=== PATIENT | male | born 1940 | race Caucasian/White ===

== ENCOUNTER 2017-02-05 08:30 | Inpatient (IN) | payer MEDICARE, BC ==
[~2017-02-05] VITALS: Ht 172.7 cm; Wt 91.6 kg
[~2017-02-05 08:30] MED LIST: ATOR40TA16 PO; CALC0.25 PO; DIOV320T PO; FURO40TA PO; GLIP5TAB8 PO; HYDR-3801 PO; LABE300T PO; OXYC-395 PO; TRAD5TAB PO
[2017-03-13] MEDS ORDERED: ASPI1TAB69 PO (13:27)
[2017-03-13] MEDS ORDERED: OMEG100010 PO (13:27)
[2017-03-13] MEDS ORDERED: ULOR80TA2 PO (13:27)
[2017-03-13] MEDS ORDERED: AMLO10TA2 PO (13:28)
--- NOTE | 2017-03-16 15:29 | MH ---
cc: KEYLA MOORE M.D., ROHIT K. M.D. DATE OF ADMISSION: 03/18/2017 ADMISSION DIAGNOSIS Lumbar degenerative disc disease. HISTORY OF PRESENT ILLNESS This is a 76-year-old male who is known to us. He has previously undergone a redo left L2-L3 hemilaminotomy with microdiscectomy on 11/01/14 and prior to that he had undergone an left L2-L3 and L3-L4 hemilaminotomy with microdiscectomy on 05/14/13. The patient states since his last surgery he did really well but then progressively started having difficulty walking. He has left-sided back pain that radiates into the hip area on the left side. He denies any paresthesias in the lower extremities. He has bilateral leg pain but is unclear of the exact distribution. He denies any bowel or bladder incontinence. He states his pain resolves with lying down. He has tried physical therapy, acupuncture, pain management and he continues to decline in his level of pain and his function. The patient and his are stating that he cannot live with his current level of discomfort and the restrictions, and he is requesting that we proceed with surgical intervention. PAST MEDICAL HISTORY Significant for - 1. Diabetes mellitus. 2. Sleep apnea and uses a CPAP machine. 3. Hypertension. 4. Chronic kidney disease and failure. 5. Rheumatoid arthritis. 6. Redo left L2-L3 hemilaminotomy with microdiscectomy on 11/01/14. Left L2-L3 and L3-L4 hemilaminotomy with microdiscectomy on 05/14/13. All surgeries were performed by Dr. Bowen. ALLERGIES TO MEDICATIONS HE HAS NO KNOWN DRUG ALLERGIES. CURRENT MEDICATIONS 1. Uloric 80 mg daily. 2. Glipizide 5 mg b.i.d. 3. Mcdaniel-3 acid 1 gram t.i.d. 4. Amlodipine 10 mg daily. 5. Tradjenta 5 mg daily. 6. Diovan 320 mg daily. 7. Calcitriol 0.25 mg daily. 8. Atorvastatin 40 mg daily. 9. Hydralazine 100 mg t.i.d. 10. Aspirin 81 mg daily. This was placed on hold one week prior to surgical intervention. 11. Labetalol 300 mg t.i.d. 12. Oxycodone 10/325 p.r.n. pain. FAMILY HISTORY His mother is at 74 years old had cancer. His father is at 75 years old. He has a sister who is at 86 years old. He has another sister who is alive at 85 and two brothers that are alive one 75 the other 79. 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 He is . He quit smoking 40 years ago. He drinks alcohol 0-2 drinks a day. REVIEW OF SYSTEMS CONSTITUTIONAL: He denies any fever or chills. EARS, NOSE AND THROAT: No pharyngitis, exudates or bloody drainage from his nose. CARDIOVASCULAR: Denies any chest pain or palpitations. RESPIRATORY: No cough or shortness of breath. GENITOURINARY: No dysuria or hematuria. MUSCULOSKELETAL: Positive for low back pain and leg pain. SKIN: No rashes or pruritus. NEUROLOGIC: No difficulty with speech or memory. GASTROINTESTINAL: No nausea, vomiting or abdominal pain. PSYCHIATRIC: No anxiety or depression symptoms. ENDOCRINE: No polyuria or polydipsia. HEMATOLOGIC: No bruising or bleeding tendencies. PHYSICAL EXAMINATION HEAD: Normocephalic, atraumatic. NECK: Supple. No carotid bruits heard on auscultation. LUNGS: Clear to auscultation bilaterally. HEART: Regular, rate and rhythm. Normal S1, S2. ABDOMEN: Soft, nontender. Positive bowel sounds. SKIN: Reveals no cyanosis or erythema. MUSCULOSKELETAL: He has 5/5 strength in the lower extremities. He ambulates without any assistive device and he ambulates with a limp. NEUROLOGIC: He is awake, alert and oriented. Cranial nerves II through XII are grossly intact. His speech is fluent. Comprehension is good. Sensation is intact in the extremities. Reflexes are diminished in the lower extremities. DATA REVIEW We reviewed an MRI of the lumbar spine from January 07, 2017 which reveals multilevel advanced disc degeneration with disc height collapse along with facet hypertrophy as well as degenerative scoliosis. He has had previous left L2-L3 and L3-L4 hemilaminotomy defects. He has a recurrent disc herniation with left L2-L3 level with an inferior migrated fragment which leads to lateral recess and significant foraminal stenosis at the L2-L3 and L3-L4 levels. There is facet hypertrophy and stenosis at the L4 and L5 level more prominent on the right lateral recess and foramen. IMPRESSION A 76-year-old male with a chronic and progressively worsening low back pain along with left L2 and L3 radiculopathy. He has had a previous history of L2-L3 and L3-L4 left hemilaminotomy with microdiscectomy with recurrent L2-L3 microdiscectomy and did well subsequent to that, but now has recurrent symptoms which have failed conservative treatment measures for including physical therapy and interventional pain management. He is very restricted in his activity status due to the pain. He has severe L2-L3 and L3-L4 facet arthropathy along with degenerative disc disease and recurrent disc herniation with lateral recess and foraminal stenosis. There are other levels of degenerative disc disease and facet arthropathy in particular involving the L4-L5 level, but the L2-L3 and L3-L4 levels appear to be the ones symptomatic at the time. PLAN We have discussed the treatment options and the patient is requesting that we proceed with surgical intervention stating he is miserable with his level of discomfort. We have discussed a left L2-L3 and L3-L4 transforaminal decompression with complete discectomy and interbody fusion with pedicle screw fixation. We have discussed the procedure as well as the risks, benefits, alternatives and recovery time in great detail with the patient. We have obtained clearance from Dr. Moore for his significant kidney disease. The patient states that he understands the procedure as well as the risks involved and he wishes to proceed with surgical intervention. No guarantees were given to the patient to the results of the surgical procedure and he states that he understands this and he was therefore scheduled accordingly. Dictated by: Bon Christianson PA-C MD KRYSTINA Crawley/JANIE /2:24 PM /2:39 PM
[2017-03-18 06:53] VITALS: BP 126/64; PULSE 55; RESP 16; TEMP 98.4; O2SAT 95
[2017-03-18] MEDS ORDERED: ceFAZolin 2 GM PREMIX 50 ML ONE (06:53)
[2017-03-18] MEDS ORDERED: BUPIVACAINE/EPINEPHRINE 0.5% 50 ML VIAL ONE (06:59)
[2017-03-18] MEDS ORDERED: VANCOMYCIN HCL 1000 MG VIAL ONE ×2 (06:59→07:05)
[2017-03-18] MEDS ORDERED: VANCOMYCIN 500 MG VIAL ONE (06:59)
[2017-03-18] MEDS ORDERED: THROMBIN (TOPICAL) 5,000 UNIT VIAL ONE ×2 (06:59→12:11)
[2017-03-18] MEDS ORDERED: GELFOAM SIZE 100 ONE (06:59)
[2017-03-18] MEDS ORDERED: ARTIFICIAL TEARS OPTH OINT 3.5 APPLIC/3.5 GM TUBO ONE (08:13)
[2017-03-18] MEDS ORDERED: ACETAMINOPHEN 1000 MG/100 ML VIAL IV ONE (08:13)
[2017-03-18] MEDS ORDERED: FAMOTIDINE 20 MG/2 ML VIAL ONE (08:14)
[2017-03-18] MEDS ORDERED: fentaNYL CITRATE 250 MCG/5 ML AMP ONE ×2 (08:14)
[2017-03-18] MEDS ORDERED: MIDAZOLAM HCL 2 MG/2 ML VIAL ONE (08:14)
[2017-03-18 08:26] LABS: HEMATOCRIT 30.6 % (39.0-51.0); REVIEW FLAG FINAL
[2017-03-18 08:59] LABS: BICARBONATE 14.5 MEQ/L (21.0-32.0); POTASSIUM 6.5 MEQ/L (3.5-5.1)
[2017-03-18] MEDS ORDERED: ceFAZolin INJ 1,000 MG VIAL ONE (09:28)
[2017-03-18] MEDS ORDERED: ceFAZolin INJ 1,000 MG VIAL IV ONE (11:20)
[2017-03-18] MEDS ORDERED: ONDANSETRON HCL 4 MG/2 ML VIAL IV PUSH ONE (12:00)
[2017-03-18] MEDS ORDERED: ePHEDrine/NS 25 MG/5 ML SYR IV ONE (12:00)
[2017-03-18] MEDS ORDERED: PHENYLEPHRINE HCL 10 MG/ML VIAL IV ONE (12:00)
[2017-03-18] MEDS ORDERED: PROPOFOL 200 MG/20 ML AMP IV ONE (12:00)
[2017-03-18] MEDS ORDERED: SODIUM CHLORID 0.9% 500 ML BAG IV ONE (12:00)
[2017-03-18] MEDS ORDERED: SODIUM CHLOR 0.9% 250 ML INJ 250 ML IV ONE (12:00)
[2017-03-18] MEDS ORDERED: PHENYLEPH/NS 1000 MCG/10 ML SYR IV ONE (12:00)
[2017-03-18] MEDS ORDERED: THROMBIN (TOPICAL) 5,000 UNIT VIAL TOPICAL ONE (12:14)
[2017-03-18] MEDS ORDERED: SODIUM CHLOR 0.9% 1000 ML INJ 1,000 ML IV SCH ×2 (13:27→15:00)
[2017-03-18] MEDS ORDERED: RESP: ALBUTEROL 2.5 MG/3 ML NEB (PRN) NEB (13:30)
[2017-03-18] MEDS ORDERED: FUROSEMIDE 40 MG TAB PO PRN (13:30)
[2017-03-18] MEDS ORDERED: MENTHOL LOZENGE BUCCAL PRN (13:30)
[2017-03-18] MEDS ORDERED: diphenhydrAMINE HCL 50 MG/ML VIAL IV PRN (13:30)
[2017-03-18] MEDS ORDERED: DEXTROSE 50% IN WATER 50 ML VIAL(D50) IV PUSH PRN (13:30)
[2017-03-18] MEDS ORDERED: ONDANSETRON HCL 4 MG/2 ML VIAL IV PRN (13:30)
[2017-03-18] MEDS ORDERED: ACETAMINOPHEN 325 MG TAB PO PRN (13:30)
[2017-03-18] MEDS ORDERED: POTASSIUM CHLOR 20 MEQ PREMIX 100 ML IV PRN (13:30)
[2017-03-18] MEDS ORDERED: MAGNESIUM SULFATE INJ 2 GM in SODIUM CHLORIDE 0.9% INJ 100 ML IV PRN (13:30)
[2017-03-18] MEDS ORDERED: NALOXONE HCL 0.4 MG/ML AMP IV PRN (13:30)
[2017-03-18] MEDS ORDERED: ZOLPIDEM TARTRATE 5 MG TAB PO PRN (13:30)
[2017-03-18] MEDS ORDERED: ALUMINUM/MAGNESIUM/SIMETH 30 ML CUP PO PRN (13:30)
[2017-03-18] MEDS ORDERED: GLUCAGON 1 MG/ML VIAL OTHER PRN (13:30)
[2017-03-18] MEDS ORDERED: SODIUM CHLORIDE 0.9% FLUSH 10 ML FLUSH IV FLUSH PRN (13:30)
[2017-03-18] MEDS ORDERED: MAGNESIUM HYDROXIDE SUSP 30 ML CUP PO PRN (13:30)
[2017-03-18] MEDS ORDERED: CALCIUM GLUCONATE INJ 1 GM in SODIUM CHLORIDE 0.9% INJ 100 ML IV PRN (13:30)
--- NOTE | 2017-03-18 13:37 | PD.OP ---
cc: Mark Moore MD Operative Report Date of Surgery: March 18, 2017 Preoperative Diagnosis: Intractable low back pain with radiculopathy; severe L2-3 and L3-4 degenerative disc disease and spondylolisthesis with associated facet arthropathy and recurrent disc herniation; postlaminectomy syndrome Postoperative Diagnosis: Same Procedure: Lumbar L2-3 and L3-4 transforaminal decompression with interbody fusion; redo L2 , L3 and L4 decompressive laminectomy with facetectomy and foraminotomy; L2-4 pedicle screw fixation; L2-3 and L3-4 interbody cage placement; microsurgical technique Anesthesia: Gen. endotracheal by Annamaria Garcia Surgeon: Leandro Bowen M.D. Snap Shearer(s): Charlee Short Operation and Findings: Following initiation of general endotracheal anesthesia, the patient had a Rodriguez catheter placed along with sequential compression devices. Ancef 2 gm was administered intravenously and he was turned in a prone position on a Blaine frame, on a Lam table, and all pressure points adequately padded. The lumbosacral region was then prepped with Chloraprep and sterilely draped with Ioban along the usual sterile draping. A midline skin incision at the previous incision site was then made extending from the L2-4 levels after infiltrating the skin with 0.5% Marcaine with epinephrine solution extending down through the fascia. The muscle fibers were split using avascular fatty plane and detached from the underlying facets, transverse process and a self- retaining retractor used for exposure. Intraoperative fluoroscopy was also used for level of confirmation along with microscope magnification for further dissection. There was significant facet and ligamentum flavum hypertrophy noted at the L2-3 and L3-4 levels. Laminotomy defect with extensive epidural fibrosis and scar tissue was evident. Left L2-3 and L3-4 facets were resected with a drill bit and there was severe foraminal stenosis from hypertrophied ligamentum flavum and facet along with disc height collapse and degeneration with spondylolisthesis at both levels. There was also extensive scar tissue with the disc fragments that are herniated entrapped around the scar tissue noted. The lateral recess and exiting left L2 and L3 nerve roots were decompressed completely. Epidural scar tissue lysis was also undertaken which was very extensive wrapping around the exiting nerve root also. There was significant disc height collapse along with disc protrusion also leading to the foraminal stenosis at both levels. Epidural hemostasis was achieved with bipolar cautery and Gelfoam with thrombin. Subsequently entered into the disc space at the L2-3 as well as L3-4 levels with a #15 blade and corinna were used for discectomy. I then placed PEEK cages packed with local autograft bone and more local autograft bone was packed adjacent to the cage in both interspaces for added interbody fusion. With placement of the cage, I was able to distract the interspace and opened up the foramen further bilaterally. Subsequently in order to facilitate the fusion and provide stabilization, pedicle screw fixation was undertaken using Warren spine screws on entry point at left L2, L3 and L4 levels at the junction of the transverse process and facet. Subsequently using AP and lateral fluoroscopy tap and screw placement. The screws were then connected with a harvey and locked in place with caps. The construct appeared very secure at this point. The area was then copiously irrigated with Vancomycin solution and powder. The retractors were removed and the bipolar cautery used for hemostasis. The muscle fascia was then approximated using 2-0 Vicryl interrupted stitches and then 3-0 Vicryl subcuticular stitches also placed in interrupted fashion. The final skin closure was completed with Dermabond absorbable mesh. A sterile dressing was then applied. The patient then turned in supine position, extubated and taken to recovery room. There were no intraoperative complications. All sponge and needle counts were correct at the end of procedure. Estimated blood loss about 200 ml. Leandro Bowen MD March 18, 2017 13:37
[2017-03-18 13:51] LABS: AUTOMATED NEUTROPHIL # 7.6 TH/MM3 (1.8-7.7); BASOPHIL # 0.1 TH/MM3 (0-0.2); BASOPHIL % 0.6 % (0.0-2.0); EOSINOPHIL # 0.1 TH/MM3 (0-0.4); EOSINOPHIL % 1.1 % (0.0-4.0); HEMATOCRIT 27.5 % (39.0-51.0); HEMO FLAGS DIFF FINAL; LYMPH % 16.1 % (9.0-44.0); LYMPHOCYTE # 1.6 TH/MM3 (1.0-4.8); MEAN CELL VOLUME 93.8 FL (80.0-100.0); MEAN CORPUSCULAR HEMOGLOBIN 30.3 PG (27.0-34.0); MEAN CORPUSCULAR HGB CONC 32.3 % (32.0-36.0); MONO % 3.7 % (0.0-8.0); NEUT % 78.5 % (16.0-70.0); PLATELET COUNT 139 TH/MM3 (150-450); RED BLOOD COUNT 2.93 MIL/MM3 (4.50-5.90); RED CELL DISTRIBUTION WIDTH 14.6 % (11.6-17.2); WHITE BLOOD COUNT 9.7 TH/MM3 (4.0-11.0)
[2017-03-18] MEDS: MORPHINE SULFATE 30 MG/30 ML PCA IV SCH (13:53)
[2017-03-18] MEDS: INSULIN NovoLIN REGULAR SUPPLEMENTAL SCALE SQ SCH ×2 (14:00→21:17)
[2017-03-18] MEDS ORDERED: INSULIN HUMAN REGULAR 1,000 UNITS/10 ML VIAL ONE (14:01)
[2017-03-18 14:10] LABS: BICARBONATE 14.8 MEQ/L (21.0-32.0); MAGNESIUM 2.2 MG/DL (1.5-2.5)
[2017-03-18] MEDS ORDERED: DEXTROSE 50% IN WATER 50 ML VIAL(D50) ONE (14:44)
[2017-03-18] MEDS ORDERED: SODIUM POLYSTYRENE SULFONATE SUSP 15 GM/60 ML CUP PO ONE (14:45)
[2017-03-18] MEDS ORDERED: SODIUM BICARBONATE 8.4% INJ 50 ML ONE (14:46)
[2017-03-18] MEDS ORDERED: RESP: ALBUTEROL 2.5 MG/IPRATROPIUM 0.5 MG NEB (PRN) ONE (14:51)
[2017-03-18] MEDS ORDERED: CALCIUM CHLORIDE INJ 2 GM in DEXTROSE 5% IN WATER 100ML INJ 100 ML IV ONE ×2 (15:00)
[2017-03-18] MEDS ORDERED: SODIUM BICARBONATE 8.4% INJ 50 MEQ/50 ML SYR IV PUSH ONE ×3 (15:00→19:00)
[2017-03-18] MEDS ORDERED: INSULIN HUMAN REGULAR 1,000 UNITS/10 ML VIAL IV PUSH ONE ×2 (15:00→19:00)
[2017-03-18] MEDS ORDERED: RESP: ALBUTEROL 2.5 MG/IPRATROPIUM 0.5 MG NEB (SCH) NEB ONE (15:00)
[2017-03-18] MEDS ORDERED: DEXTROSE 50% IN WATER 50 ML SYRINGE IV ONE ×2 (15:00→19:00)
--- NOTE | 2017-03-18 15:09 | PD.CONS ---
[facility] Service Critical Care Medicine Consult Requested By Dr. Lundberg Reason for Consult Hyperkalemia with cardiac toxicity s/p Left L2-L3 and L3-L4 transforaminal decompression with complete discectomy and interbody fusion with pedicle screw fixation. Primary Care Physician Mark Bryant Mai, MD History of Present Illness Patient is a 76-year-old male with past medical history significant for chronic kidney disease, type 2 diabetes, hypertension, previous redo left L2 -L3 hemilaminotomy with microdiscectomy on 11/01/14 and previous left L2-L3 and L3-L4 hemilaminotomy with microdiscectomy on 05/14/13. Patient presented to , with progressive pain and weakness of the lower extremities. He underwent Left L2-L3 and L3-L4 transforaminal decompression with complete discectomy and interbody fusion with pedicle screw fixation today by Dr. Bowen. Patient had a potassium of 6.5 prior to surgery, which came down to 5.9 with treatment. Postop potassium was 7 BUN/cr 80/3.8, bicarb was 15. Stat EKG showed some cardiotoxicity changes with few peaked T waves and interventricular conduction delay. Patient was emergently given calcium chloride 2 g, IV insulin 10 units for by D50 one amp, DuoNeb breathing treatments, bicarbonate 100 meq, Kayexalate 30 g 1. For surgery EBL was 200 ml and patient received 1800 ml crystalloids I evaluated patient in PACU. Patient is extubated anxious and hypertensive. Explained to patient and plan of care Review of Systems ROS Limitations: Other (as per HPI) Past Family Social History Allergies: Coded Allergies: No Known Allergies (Unverified , 03/18/17) Past Medical History Diabetes mellitus. Sleep apnea and uses a CPAP machine. Hypertension. Chronic kidney disease Rheumatoid arthritis. Past Surgical History Redo left L2-L3 hemilaminotomy with microdiscectomy on 11/01/14. Left L2-L3 and L3-L4 hemilaminotomy with microdiscectomy on 05/14/13. Reported Medications Uloric 80 mg daily. Glipizide 5 mg b.i.d. Esmond-3 acid 1 gram t.i.d. Amlodipine 10 mg daily. Tradjenta 5 mg daily. Diovan 320 mg daily. Calcitriol 0.25 mg daily. Atorvastatin 40 mg daily. Hydralazine 100 mg t.i.d. Aspirin 81 mg daily. (This was placed on hold one week prior to surgical intervention) Labetalol 300 mg t.i.d. Oxycodone 10/325 p.r.n. pain. Active Ordered Medications Reviewed Family History Noncontributory Social History Quit smoking 40 yr ago Drinks 1-2 beers daily Physical Exam Vital Signs Vital Signs Date Time Temp Pulse Resp B/P Pulse Ox O2 Delivery O2 Flow Rate FiO2 03/18/17 13:53 14 03/18/17 06:53 98.4 55 16 126/64 95 Physical Exam GEN: Lying in PACU bed. HEAD: Normocephalic, atraumatic. NECK: Supple. LUNGS: Clear to auscultation bilaterally. HEART: Regular, rate and rhythm. Normal S1, S2. ABDOMEN: Soft, nontender. Positive bowel sounds. SKIN: Reveals no cyanosis or erythema. MUSCULOSKELETAL: Recent back surgery NEUROLOGIC: Awake alert oriented 3. Appears to have normal strength all extremities Laboratory Laboratory Tests Test 03/18/17 03/18/17 03/18/17 03/18/17 06:55 07:00 08:10 09:16 Blood Type A POSITIVE A POSITIVE Antibody Screen NEGATIVE Crossmatch Leukocyte-Reduced Red Blood Cells Blood Bank Comment Hemoglobin 9.9 Hematocrit 30.6 Sodium Level 140 Potassium Level 6.5 5.9 Chloride Level 117 Carbon Dioxide Level 14.5 Anion Gap 9 Blood Urea Nitrogen 78 Creatinine 3.69 Estimat Glomerular Filtration 16 Rate Random Glucose 175 Calcium Level 9.8 Test 03/18/17 03/18/17 13:25 13:36 Sodium Level 141 Potassium Level 7.0 Chloride Level 117 Carbon Dioxide Level 14.8 Anion Gap 9 Blood Urea Nitrogen 80 Creatinine 3.84 Estimat Glomerular Filtration 15 Rate Random Glucose 199 Calcium Level 8.7 Magnesium Level 2.2 White Blood Count 9.7 Red Blood Count 2.93 Hemoglobin 8.9 Hematocrit 27.5 Mean Corpuscular Volume 93.8 Mean Corpuscular Hemoglobin 30.3 Mean Corpuscular Hemoglobin 32.3 Concent Red Cell Distribution Width 14.6 Platelet Count 139 Mean Platelet Volume 7.8 Neutrophils (%) (Auto) 78.5 Lymphocytes (%) (Auto) 16.1 Monocytes (%) (Auto) 3.7 Eosinophils (%) (Auto) 1.1 Basophils (%) (Auto) 0.6 Neutrophils # (Auto) 7.6 Lymphocytes # (Auto) 1.6 Monocytes # (Auto) 0.4 Eosinophils # (Auto) 0.1 Basophils # (Auto) 0.1 CBC Comment DIFF FINAL Differential Comment Result Diagram: 03/18/17 1336 03/18/17 1325 Assessment and Plan Assessment and Plan ASSESSMENT Hyperkalemia with cardiac toxicity s/p Left L2-L3 and L3-L4 transforaminal decompression with complete discectomy and interbody fusion with pedicle screw fixation. Chronic kidney disease stage IV Hypertension Type 2 diabetes PLAN NEURO: -Morphine FARMWORKER GRAIN pump for pain control -Postop management per Dr. Bowen RESP: -DuoNeb every 6 hours when necessary -Nasal cannula oxygen, as needed CV: -Stat EKG showed some cardiotoxicity changes with few peaked T waves and interventricular conduction delay. -Emergently given calcium chloride 2 g, IV insulin 10 units for by D50 one amp, DuoNeb breathing treatments, bicarbonate 100 meq, Kayexalate 30 g 1. -Normal saline IV fluids 1L bolus and 75 ml per hour -Nephrology consulted stat -Hold valsartan GI: -Renal diet after hyperkalemia resolves -IV Protonix : -Patient has chronic kidney disease followed by Dr. Moore -Nephrology Dr. Reyes consulted -Patient and informed need for probable dialysis to correct hyperkalemia, if medical treatment inadequate ID: -Perioperative antibiotics per Dr. Bowen HEME: -Monitor CBC, CMP, coags ENDO: -Sliding scale insulin for hyperglycemia PROPH: -Bilateral lower extremity SCDs. Chemical DVT prophylaxis only after clearance from neurosurgery LINES: -Utilize peripheral IVs, central line if needed CC time 55 min Code Status Full Discussed Condition With Dr. Bowen, Aubrey Rivers MD March 18, 2017 15:09
--- NOTE | 2017-03-18 15:31 | RADRPT ---
EXAM DATE/TIME: 03/18/2017 09:01 [facility] COMPARISON: No previous studies available for comparison. INDICATIONS : L2-L3-L4 posterior lumbar fusion. Level localization. MEDICAL HISTORY : None. SURGICAL HISTORY : None. ENCOUNTER: Initial ACUITY: 1 day PAIN SCORE: Non-responsive. LOCATION: Lumbar spine. CONCLUSION: Lateral fluoroscopic view of the lumbar spine demonstrates temporary probes overlying the posterior e lements at L3 and L4. Bon Bernard MD on March 18, 2017 at 15:28 Board Certified Radiologist. This report was verified electronically.
--- NOTE | 2017-03-18 15:35 | RADRPT ---
EXAM DATE/TIME: 03/18/2017 09:01 [facility] COMPARISON: No previous studies available for comparison. INDICATIONS : Post-op L2-L3-L4 posterior lumbar fusion. MEDICAL HISTORY : None. SURGICAL HISTORY : None. ENCOUNTER: Initial ACUITY: 1 day PAIN SCORE: Non-responsive. LOCATION: Lumbar spine. FINDINGS: Examination reveals L2-L4 posterior hardware fusion with unilateral pedicle screws and longitudinal b ar fixation on the left extending from L2-L4. Disc spaces appear to be well positioned. Hardware is i ntact. Alignment is anatomic. There is moderately severe disc space narrowing at L1-2. Mild right con vex scoliosis. CONCLUSION: Satisfactory operative appearance. Song Amaya MD on March 18, 2017 at 15:31 Board Certified Radiologist. This report was verified electronically.
[2017-03-18 16:00] VITALS: BP 162/79; PULSE 60; RESP 17; TEMP 97.7; O2SAT 97
--- NOTE | 2017-03-18 16:28 | EKG ---
Date Performed: 03/18/2017 Time Performed: 14:27:28 PTAGE: 76 years EKG: SINUS BRADYCARDIA WITH SINUS ARRHYTHMIA WITH FIRST DEGREE AV BLOCK ABNORMAL ECG PREVIOUS TRACING : 10/26/2014 13.22 No significant change from previous tracing noted. DOCTOR: Travon Vazquez Interpretating Date/Time 03/18/2017 16:27:36
[2017-03-18] MEDS: hydrALAZINE HCL 100 MG TAB PO SCH (16:54)
[2017-03-18] MEDS: LABETALOL HCL 300 MG TAB PO SCH (17:33)
--- NOTE | 2017-03-18 17:34 | PD.CONS ---
HPI Service Nephrology Consult Requested By Dr. Zuleta Reason for Consult Chronic kidney disease with hyperkalemia Primary Care Physician Mark Bryant Mai, MD History of Present Illness Patient is a 76-year-old white male with history of diabetes, chronic kidney disease stage V, he has previous laminectomy and has compression fracture of the vertebrae, he is post op for the procedure again laminectomy was redone, cage and screw were placed, his preoperative potassium was 6.5 this was treated and it came down to 5.9, postoperatively his potassium went up to 7 his creatinine is 3.8 the day was some cardiac toxicity with P waves he was given calcium, D50 insulin, Kayexalate, DuoNeb and bicarbonate and waiting for another set of blood tests Review of Systems Constitutional: COMPLAINS OF: Fatigue Musculoskeletal: COMPLAINS OF: Back pain Past Family Social History Allergies: Coded Allergies: No Known Allergies (Unverified , 03/18/17) Past Medical History Diabetes mellitus. Sleep apnea and uses a CPAP machine. Hypertension. Chronic kidney disease Rheumatoid arthritis. Past Surgical History Redo left L2-L3 hemilaminotomy with microdiscectomy on 11/01/14. Left L2-L3 and L3-L4 hemilaminotomy with microdiscectomy on 05/14/13. Reported Medications Reported Meds & Active Scripts Active Reported Amlodipine (Amlodipine Besylate) 10 Mg Tab 10 Mg PO DAILY Charlton 3 1000 mg (Charlton-3 Fatty Acids) 1 Cap Cap 1 Cap PO DAILY Uloric (Febuxostat) 80 Mg Tab 1 Tab PO DAILY Aspirin 81 Mg Tabdr 81 Mg PO DAILY Labetalol (Labetalol HCl) 300 Mg Tab 300 Mg PO TID Oxycodone (Oxycodone HCl) 10 Mg Tab 10 Mg PO Q8H PRN Hydralazine (Hydralazine HCl) 100 Mg Tab 100 Mg PO TID Take with meals Atorvastatin (Atorvastatin Calcium) 40 Mg Tab 40 Mg PO HS Calcitriol 0.25 Mcg Cap 0.25 Mcg PO DAILY Diovan (Valsartan) 320 Mg Tab 320 Mg PO DAILY Tradjenta (Linagliptin) 5 Mg Tab 5 Mg PO DAILY Furosemide 40 Mg Tab 40 Mg PO DAILY PRN Glipizide 5 Mg Tab 5 Mg PO BID Take 30 minutes before a meal Active Ordered Medications Current Medications Medications (Trade) Dose Ordered Sig/Yosvany Route Start Time Stop Time Status Last Admin (Norvasc) 10 mg DAILY PO 03/19/17 09:00 (Ecotrin Ec) 81 mg DAILY PO 03/19/17 09:00 (Lipitor) 40 mg HS PO 03/18/17 21:00 (Rocaltrol) 0.25 mcg DAILY PO 03/19/17 09:00 (Lasix) 40 mg DAILY PRN PO 03/18/17 13:30 Hold (Apresoline) 100 mg TID PO 03/18/17 18:00 03/18/17 16:54 (Trandate) 300 mg TID PO 03/18/17 18:00 (Diovan) 320 mg DAILY PO 03/19/17 09:00 Future Hold Non-Formulary Medication 1 tab DAILY PO 03/19/17 09:00 UNV Non-Formulary Medication 5 mg DAILY PO 03/19/17 09:00 UNV (Narcan Inj) 0.4 mg UNSCH PRN IV 03/18/17 13:30 (Benadryl Inj) 25 mg Q6H PRN IV 03/18/17 13:30 (Morphine 1 Mg/ ml PAINTING WORKER) 30 mg UNSCH IV 03/18/17 13:30 03/18/17 13:53 PAINTING WORKER Dosage Infused (Pha) 1 Q8HR .XX 03/18/17 14:00 (NS Flush) 2 ml UNSCH PRN IV FLUSH 03/18/17 13:30 (NS Flush) 2 ml BID IV FLUSH 03/18/17 21:00 (Colace) 100 mg BID PO 03/18/17 21:00 (Mag-Al Plus Susp Liq) 30 ml Q6H PRN PO 03/18/17 13:30 (Protonix) 40 mg DAILY PO 03/19/17 09:00 Ondansetron HCl 4 mg 4 mg Q6H PRN IV 03/18/17 13:30 Calcium Gluconate 1 gm/Sodium Chloride 110 ml @ 110 mls/hr UNSCH PRN IV 03/18/17 13:30 (Magnesium Sulfate Inj/NS Inj) 104 ml @ 100 mls/hr UNSCH PRN IV 03/18/17 13:30 (Flexeril) 10 mg Q8H PRN PO 03/18/17 13:30 (Catapres) 0.1 mg Q6H PRN PO 03/18/17 13:30 (Tylenol) 650 mg Q4H PRN PO 03/18/17 13:30 ([place] Shira) 1 lozenge UNSCH PRN BUCCAL 03/18/17 13:30 (Ambien) 5 mg HS PRN PO 03/18/17 13:30 (D50w (Vial) Inj) 25 ml UNSCH PRN IV PUSH 03/18/17 13:30 (Glucagon Inj) 1 mg UNSCH PRN OTHER 03/18/17 13:30 Polyethylene Glycol 17 gm 17 gm DAILY PO 03/19/17 09:00 Sodium Chloride 1,000 ml @ 125 mls/hr Q8H IV 03/18/17 15:00 03/18/17 14:50 (Ancef Inj/NS Inj) 100 ml @ 200 mls/hr Q8H IV 03/18/17 20:00 03/19/17 12:29 (Apresoline Inj) 20 mg Q4H PRN IV PUSH 03/18/17 16:30 UNV Family History Noncontributory Social History He denies current smoking used to smoke a long time he drinks socially Physical Exam Vital Signs Vital Signs Date Time Temp Pulse Resp B/P Pulse Ox O2 Delivery O2 Flow Rate FiO2 03/18/17 15:30 59 11 98 03/18/17 15:15 98.3 58 22 158/68 97 Nasal Cannula 2 03/18/17 15:00 56 10 145/67 97 Nasal Cannula 2 03/18/17 14:45 55 10 134/63 95 Nasal Cannula 2 03/18/17 14:30 54 10 136/63 96 Nasal Cannula 2 03/18/17 14:15 54 10 135/95 96 Nasal Cannula 2 03/18/17 14:00 53 13 131/60 95 Nasal Cannula 2 03/18/17 13:53 14 03/18/17 13:45 52 22 136/64 95 Nasal Cannula 2 138/52 03/18/17 13:30 43 19 130/60 95 Nasal Cannula 2 03/18/17 13:22 98.6 43 25 138/63 94 Nasal Cannula 2 03/18/17 06:53 98.4 55 16 126/64 95 Physical Exam GENERAL: Well-nourished, well-developed patient. SKIN: Warm and dry. HEAD: Normocephalic. EYES: No scleral icterus. No injection or drainage. NECK: Supple, trachea midline. No JVD or lymphadenopathy. CARDIOVASCULAR: Regular rate and rhythm without murmurs, gallops, or rubs. RESPIRATORY: Breath sounds equal bilaterally. No accessory muscle use. GASTROINTESTINAL: Abdomen soft, non-tender, nondistended. EXTREMITIES: No cyanosis, or edema. NEUROLOGICAL: Awake, alert, and oriented x 3. Non-focal. Laboratory Laboratory Tests Test 03/18/17 03/18/17 03/18/17 03/18/17 06:55 07:00 08:10 09:16 Blood Type A POSITIVE A POSITIVE Antibody Screen NEGATIVE Crossmatch Leukocyte-Reduced Red Blood Cells Blood Bank Comment Hemoglobin 9.9 Hematocrit 30.6 Sodium Level 140 Potassium Level 6.5 5.9 Chloride Level 117 Carbon Dioxide Level 14.5 Anion Gap 9 Blood Urea Nitrogen 78 Creatinine 3.69 Estimat Glomerular Filtration 16 Rate Random Glucose 175 Calcium Level 9.8 Test 03/18/17 03/18/17 13:25 13:36 Sodium Level 141 Potassium Level 7.0 Chloride Level 117 Carbon Dioxide Level 14.8 Anion Gap 9 Blood Urea Nitrogen 80 Creatinine 3.84 Estimat Glomerular Filtration 15 Rate Random Glucose 199 Calcium Level 8.7 Magnesium Level 2.2 White Blood Count 9.7 Red Blood Count 2.93 Hemoglobin 8.9 Hematocrit 27.5 Mean Corpuscular Volume 93.8 Mean Corpuscular Hemoglobin 30.3 Mean Corpuscular Hemoglobin 32.3 Concent Red Cell Distribution Width 14.6 Platelet Count 139 Mean Platelet Volume 7.8 Neutrophils (%) (Auto) 78.5 Lymphocytes (%) (Auto) 16.1 Monocytes (%) (Auto) 3.7 Eosinophils (%) (Auto) 1.1 Basophils (%) (Auto) 0.6 Neutrophils # (Auto) 7.6 Lymphocytes # (Auto) 1.6 Monocytes # (Auto) 0.4 Eosinophils # (Auto) 0.1 Basophils # (Auto) 0.1 CBC Comment DIFF FINAL Differential Comment Result Diagram: 03/18/17 1336 03/18/17 1325 Imaging Last Impressions Lumbar Spine X-Ray 03/18/17 0000 Signed Impressions: Service Date/Time: Saturday, March 18, 2017 09:01 - CONCLUSION: Lateral fluoroscopic view of the lumbar spine demonstrates temporary probes overlying the posterior elements at L3 and L4. Bon Bernard MD Assessment and Plan Problem List: (1) Hyperkalemia Plan: He was treated medically and then repeat blood test is pending he may require hemodialysis if his potassium remains elevated, I discussed the procedure with the him and his , explained complications including placement of central line bleeding, sepsis, hemodialysis procedure and its complications were discussed Further decision about dialysis will depend on his next set of blood tests Is not uremic and follows with Dr. Moore He is aware that he has advanced stage kidney disease (2) Acidosis, metabolic Plan: Non-anion gap monitor on bicarbonate drip I have changed the fluids and added bicarbonate (3) CKD (chronic kidney disease), stage V Plan: As above due to diabetic kidney disease (4) Recurrent herniation of lumbar disc Plan: He had surgery (5) Lumbar foraminal stenosis Plan: Post surgery Vicky Reyes MD March 18, 2017 17:33
[2017-03-18 18:00] VITALS: PULSE 71
[2017-03-18 18:20] LABS: ALKALINE PHOSPHATASE 66 U/L (45-117); ALT (GPT) 49 U/L (12-78); ANION GAP 8 MEQ/L (5-15); AST (GOT) 27 U/L (15-37); BICARBONATE 16.8 MEQ/L (21.0-32.0); BLOOD UREA NITROGEN 76 MG/DL (7-18); CHLORIDE 119 MEQ/L (98-107); GLOMERULAR FILTRATION RATE 16 ML/MIN (>89); POTASSIUM 5.5 MEQ/L (3.5-5.1); SODIUM (NA) 144 MEQ/L (136-145); TOTAL BILIRUBIN ADULT 0.3 MG/DL (0.2-1.0)
[2017-03-18 20:00] VITALS: BP 179/84; PULSE 70; RESP 13; TEMP 97.7; O2SAT 96
[2017-03-18] MEDS: hydrALAZINE HCL 20 MG/ML VIAL IV PUSH PRN (21:00)
[2017-03-18] MEDS: SODIUM BICARBONATE 8.4% INJ 100 MEQ in SODIUM CHLOR 0.45% 1000 ML INJ 1,000 ML IV SCH (21:11)
[2017-03-18] MEDS: ATORVASTATIN 40 MG TAB PO SCH (21:12)
[2017-03-18] MEDS: DOCUSATE SODIUM 100 MG CAP PO SCH (21:12)
[2017-03-18] MEDS: SODIUM CHLORIDE 0.9% FLUSH 10 ML FLUSH IV FLUSH SCH (21:12)
[2017-03-18 22:00] VITALS: PULSE 78
[2017-03-18] MEDS: PCA - TOTAL MG MORPHINE DELIVERED PER SHIFT SCH (22:47)
[2017-03-18 23:37] LABS: BICARBONATE 19.3 MEQ/L (21.0-32.0); POTASSIUM 5.5 MEQ/L (3.5-5.1)
[2017-03-19] VITALS (14 sets, daily range): BP systolic 149–177; BP diastolic 60–90; PULSE 66–80; RESP 14–20; TEMP 98–98.9; O2SAT 95–97
[2017-03-19] MEDS: MORPHINE SULFATE 30 MG/30 ML PCA IV SCH (02:20)
[2017-03-19] MEDS: hydrALAZINE HCL 20 MG/ML VIAL IV PUSH PRN ×2 (03:09→13:52)
[2017-03-19 04:09] LABS: BICARBONATE 18.8 MEQ/L (21.0-32.0); POTASSIUM 5.1 MEQ/L (3.5-5.1)
[2017-03-19] MEDS: PCA - TOTAL MG MORPHINE DELIVERED PER SHIFT SCH ×2 (06:56→14:00)
[2017-03-19] MEDS: INSULIN NovoLIN REGULAR SUPPLEMENTAL SCALE SQ SCH ×4 (06:57→21:37)
[2017-03-19] MEDS: ASPIRIN EC 81 MG TABEC PO SCH (08:17)
[2017-03-19] MEDS: DOCUSATE SODIUM 100 MG CAP PO SCH ×2 (08:17→21:37)
[2017-03-19] MEDS: PANTOPRAZOLE SOD 40 MG DELAYED RELEASE TAB PO SCH (08:18)
[2017-03-19] MEDS: CALCITRIOL 0.25 MCG CAP PO SCH (08:18)
[2017-03-19] MEDS: LABETALOL HCL 300 MG TAB PO SCH ×3 (08:18→17:54)
[2017-03-19] MEDS: hydrALAZINE HCL 100 MG TAB PO SCH ×3 (08:18→17:54)
[2017-03-19] MEDS: SODIUM CHLORIDE 0.9% FLUSH 10 ML FLUSH IV FLUSH SCH ×2 (08:18→21:00)
[2017-03-19] MEDS: SODIUM BICARBONATE 8.4% INJ 100 MEQ in SODIUM CHLOR 0.45% 1000 ML INJ 1,000 ML IV SCH (08:19)
[2017-03-19] MEDS: POLYETHYLENE GLYCOL 17 GM PKG PO SCH ×2 (08:26→13:52)
[2017-03-19] MEDS ORDERED: VALSARTAN 160 MG TAB PO SCH (09:00)
[2017-03-19] MEDS ORDERED: FEBUXOSTAT PO SCH (09:00)
--- NOTE | 2017-03-19 09:05 | HHI.NSPN ---
(Bon Christianson) History Chief Complaint: Incisional pain controlled. (Bon Christianson) Interval History This is a 76-year-old male who is known to us. He has previously undergone a redo left L2-L3 hemilaminotomy with microdiscectomy on 11/01/14 and prior to that he had undergone an left L2-L3 and L3-L4 hemilaminotomy with microdiscectomy on 05/14/13. The patient states since his last surgery he did really well but then progressively started having difficulty walking. He has left-sided back pain that radiates into the hip area on the left side. He denies any paresthesias in the lower extremities. He has bilateral leg pain but is unclear of the exact distribution. He denies any bowel or bladder incontinence. He states his pain resolves with lying down. He has tried physical therapy, acupuncture, pain management and he continues to decline in his level of pain and his function. The patient and his are stating that he cannot live with his current level of discomfort and the restrictions, and he is requesting that we proceed with surgical intervention. 03/19/17: Pt awake and alert. States incisional pain controlled. No radiculopathy in LEs. No paresthesias in LEs. No chest pain or sob. (Bon Christianson) Review of Systems General: Negative for: fever, chills, insomnia Respiratory: Negative for: shortness of breath, cough, sputum Cardiovascular: Negative for: chest pain Gastrointestinal: Negative for: nausea, vomitting, diarrhea, constipation ( Bon Christianson) Exam Results Vital Signs Date Time Temp Pulse Resp B/P Pulse Ox O2 Delivery O2 Flow Rate FiO2 03/19/17 07:00 96 Nasal Cannula 2.00 03/19/17 06:56 14 03/19/17 06:00 79 03/19/17 04:00 98.1 158/74 03/18/17 19:31 96 Intake and Output 03/18/17 03/18/17 03/19/17 08:00 16:00 00:00 Intake Total 2711 ml 1162 ml Output Total 635 ml 1425 ml Balance 2076 ml -263 ml (Bon Christianson) Physical Examination Resp: CTA bilaterally Heart: NSR no murmurs Abd: Soft positive bs Skin: No cyanosis or erythema. Bandage changed earlier by RN. : Rodriguez in place with yellow urine being produced. Muscle: Moves LEs with good strength. Neuro: Pt awake and alert. Follows commands well. Speech clear and appropriate. (Bon Christianson) Lab, Micro, Other Results Laboratory Tests Test 03/18/17 03/18/17 03/18/17 03/18/17 09:16 13:25 13:36 17:06 Potassium Level 5.9 MEQ/L 7.0 MEQ/L 5.5 MEQ/L Sodium Level 141 MEQ/L 144 MEQ/L Chloride Level 117 MEQ/L 119 MEQ/L Carbon Dioxide Level 14.8 MEQ/L 16.8 MEQ/L Anion Gap 9 MEQ/L 8 MEQ/L Blood Urea Nitrogen 80 MG/DL 76 MG/DL Creatinine 3.84 MG/DL 3.72 MG/DL Estimat Glomerular Filtration 15 ML/MIN 16 ML/MIN Rate Random Glucose 199 MG/DL 226 MG/DL Calcium Level 8.7 MG/DL 10.4 MG/DL Magnesium Level 2.2 MG/DL White Blood Count 9.7 TH/MM3 Red Blood Count 2.93 MIL/MM3 Hemoglobin 8.9 GM/DL Hematocrit 27.5 % Mean Corpuscular Volume 93.8 FL Mean Corpuscular Hemoglobin 30.3 PG Mean Corpuscular Hemoglobin 32.3 % Concent Red Cell Distribution Width 14.6 % Platelet Count 139 TH/MM3 Mean Platelet Volume 7.8 FL Neutrophils (%) (Auto) 78.5 % Lymphocytes (%) (Auto) 16.1 % Monocytes (%) (Auto) 3.7 % Eosinophils (%) (Auto) 1.1 % Basophils (%) (Auto) 0.6 % Neutrophils # (Auto) 7.6 TH/MM3 Lymphocytes # (Auto) 1.6 TH/MM3 Monocytes # (Auto) 0.4 TH/MM3 Eosinophils # (Auto) 0.1 TH/MM3 Basophils # (Auto) 0.1 TH/MM3 CBC Comment DIFF FINAL Differential Comment Total Bilirubin 0.3 MG/DL Aspartate Amino Transf 27 U/L (AST/SGOT) Alanine Aminotransferase 49 U/L (ALT/SGPT) Alkaline Phosphatase 66 U/L Total Protein 6.8 GM/DL Albumin 2.8 GM/DL Test 03/18/17 03/19/17 22:35 02:59 Sodium Level 144 MEQ/L 146 MEQ/L Potassium Level 5.5 MEQ/L 5.1 MEQ/L Chloride Level 118 MEQ/L 118 MEQ/L Carbon Dioxide Level 19.3 MEQ/L 18.8 MEQ/L Anion Gap 7 MEQ/L 9 MEQ/L Blood Urea Nitrogen 70 MG/DL 69 MG/DL Creatinine 3.73 MG/DL 3.47 MG/DL Estimat Glomerular Filtration 16 ML/MIN 17 ML/MIN Rate Random Glucose 196 MG/DL 138 MG/DL Calcium Level 9.7 MG/DL 9.6 MG/DL 03/18/17 03/18/17 03/19/17 15:00 23:00 07:00 Intake Total 1800 ml 2073 ml 1184 ml Output Total 450 ml 1610 ml 1125 ml Balance 1350 ml 463 ml 59 ml Intake Oral 290 ml 240 ml IV Total 1783 ml 944 ml Other 1800 ml Output Urine Total 250 ml 1610 ml 1125 ml Estimated Blood Loss 200 ml # Bowel Movements 0 0 (Bon Christianson) Medical Decision Making Impression and Plan A: 76 y/o M s/p Lumbar L2-3 and L3-4 transforaminal decompression with interbody fusion; redo L2, L3 and L4 decompressive laminectomy with facetectomy and foraminotomy; L2-4 pedicle screw fixation; L2-3 and L3-4 interbody cage placement. Chronic kidney disease. P: Continue with pain control PT with brace on prior to sitting, standing, or walking Continue with medical management of his chronic kidney disease. (Bon Christianson) Attending Statement The exam, history, and the medical decision-making described in the above note were completed with the assistance of the mid-level provider. I reviewed and agree with the findings presented. I attest that I had a [id number] encounter with the patient on the same day, and personally performed and documented my assessment and findings in the medical record. Doing well postoperatively with no back pain and resolved radiculopathy. Was out of bed with physical therapy. Complains of sore throat and constipation. Potassium is corrected. We'll DC the PEST CONTROL SERVICE SALES AGENT and use when necessary oxycodone. Miralax and Colace for constipation. Plan on rehabilitation placement once cleared by nephrology. (Leandro Bowen MD) Bon Christianson March 19, 2017 09:05 Leandro Bowen MD March 19, 2017 16:09
--- NOTE | 2017-03-19 11:00 | HHI.CCPN ---
Subjective Remarks/Hospital Course Patient is a 76-year-old male with past medical history significant for chronic kidney disease, type 2 diabetes, hypertension, previous redo left L2 -L3 hemilaminotomy with microdiscectomy on 11/01/14 and previous left L2-L3 and L3-L4 hemilaminotomy with microdiscectomy on 05/14/13. Patient presented to , with progressive pain and weakness of the lower extremities. He underwent Left L2-L3 and L3-L4 transforaminal decompression with complete discectomy and interbody fusion with pedicle screw fixation today by Dr. Bowen. Patient had a potassium of 6.5 prior to surgery, which came down to 5.9 with treatment. Postop potassium was 7 BUN/cr 80/3.8, bicarb was 15. Stat EKG showed some cardiotoxicity changes with few peaked T waves and interventricular conduction delay. Patient was emergently given calcium chloride 2 g, IV insulin 10 units for by D50 one amp, DuoNeb breathing treatments, bicarbonate 100 meq, Kayexalate 30 g 1. For surgery EBL was 200 ml and patient received 1800 ml crystalloids I evaluated patient in PACU. Patient is extubated anxious and hypertensive. Explained to patient and plan of care 03/19: S/P lumbar surgery and CKD with retention of potassium. Sitting in chair with better potassium control. Objective Vital Signs Date Time Temp Pulse Resp B/P Pulse Ox O2 Delivery O2 Flow Rate FiO2 03/19/17 10:47 97 Nasal Cannula 2.00 03/19/17 08:00 98.0 80 16 169/76 03/18/17 19:31 96 Intake and Output 03/18/17 03/18/17 03/19/17 08:00 16:00 00:00 Intake Total 2711 ml 1162 ml Output Total 635 ml 1425 ml Balance 2076 ml -263 ml Result Diagram: 03/18/17 1336 03/19/17 0259 Objective Remarks GEN: Sitting in chair. HEAD: Normocephalic, atraumatic. NECK: Supple. LUNGS: Clear to auscultation bilaterally. No wheezes or cough. HEART: Regular, rate and rhythm. Normal S1, S2. ABDOMEN: Soft, nontender. Positive bowel sounds. SKIN: Reveals no cyanosis or erythema. MUSCULOSKELETAL: Recent back surgery NEUROLOGIC: Awake alert oriented 3. Appears to have normal strength all extremities. Protects airway. A/P Assessment and Plan ASSESSMENT Hyperkalemia with cardiac toxicity s/p Left L2-L3 and L3-L4 transforaminal decompression with complete discectomy and interbody fusion with pedicle screw fixation. Chronic kidney disease stage IV Hypertension Type 2 diabetes PLAN NEURO: -Morphine POWDER COMPOUNDER pump for pain control -Postop management per Dr. Bowen -K controlled. RESP: -DuoNeb every 6 hours when necessary -Nasal cannula oxygen, as needed CV: -Stat EKG showed some cardiotoxicity changes with few peaked T waves and interventricular conduction delay. -Emergently given calcium chloride 2 g, IV insulin 10 units for by D50 one amp, DuoNeb breathing treatments, bicarbonate 100 meq, Kayexalate 30 g 1. -Normal saline IV fluids 1L bolus and 75 ml per hour -Nephrology consulted stat -Hold valsartan GI: -Renal diet after hyperkalemia resolves -IV Protonix : -Patient has chronic kidney disease followed by Dr. Moore -Nephrology Dr. Reyes consulted -Patient and informed need for probable dialysis to correct hyperkalemia, if medical treatment inadequate ID: -Perioperative antibiotics per Dr. Bowen HEME: -Monitor CBC, CMP, coags ENDO: -Sliding scale insulin for hyperglycemia PROPH: -Bilateral lower extremity SCDs. Chemical DVT prophylaxis only after clearance from neurosurgery LINES: -Utilize peripheral IVs, central line if needed CC time 55 min Chaka Mccloud MD March 19, 2017 11:00
[2017-03-19] MEDS: CYCLOBENZAPRINE HCL 10 MG TAB PO PRN ×2 (11:10→21:37)
--- NOTE | 2017-03-19 11:34 | HHI.NPPN ---
Subjective History of Present Illness 76 year old with Redo Laminectomy,fusion, cage and Screw placement, developed hyperkalemia post op Additional Remarks back pain otherwise doing well Review of Systems Musculoskeletal MS: Pain/Stiffness Objective Data Data 03/18/17 03/19/17 19:00 07:00 Intake Total 2711 ml 2346 ml Output Total 635 ml 2550 ml Balance 2076 ml -204 ml Intake Oral 50 ml 480 ml IV Total 861 ml 1866 ml Other 1800 ml Output Urine Total 435 ml 2550 ml Estimated Blood Loss 200 ml # Bowel Movements 0 Vital Signs Date Time Temp Pulse Resp B/P Pulse Ox O2 Delivery O2 Flow Rate FiO2 03/19/17 10:47 97 Nasal Cannula 2.00 03/19/17 08:00 98.0 80 16 169/76 95 03/19/17 08:00 78 03/19/17 07:00 96 Nasal Cannula 2.00 03/19/17 06:56 14 03/19/17 06:00 79 03/19/17 04:00 98.1 79 15 158/74 96 03/19/17 04:00 79 03/19/17 02:20 21 03/19/17 02:00 73 03/19/17 00:00 72 03/19/17 00:00 98.1 72 14 154/60 97 03/18/17 22:47 25 03/18/17 22:00 78 03/18/17 20:00 97.7 70 13 179/84 96 03/18/17 20:00 70 03/18/17 19:31 Room Air 96 03/18/17 18:00 71 03/18/17 16:00 60 03/18/17 16:00 Room Air 97 03/18/17 16:00 97.7 60 17 162/79 97 Arterial Line 03/18/17 15:30 59 11 98 03/18/17 15:15 98.3 58 22 158/68 97 Nasal Cannula 2 03/18/17 15:00 56 10 145/67 97 Nasal Cannula 2 03/18/17 14:45 55 10 134/63 95 Nasal Cannula 2 03/18/17 14:30 54 10 136/63 96 Nasal Cannula 2 03/18/17 14:15 54 10 135/95 96 Nasal Cannula 2 03/18/17 14:00 53 13 131/60 95 Nasal Cannula 2 03/18/17 13:53 14 03/18/17 13:45 52 22 136/64 95 Nasal Cannula 2 138/52 03/18/17 13:30 43 19 130/60 95 Nasal Cannula 2 03/18/17 13:22 98.6 43 25 138/63 94 Nasal Cannula 2 -: 03/18/17 1336 03/19/17 0259 Physical Exam General Appearance: Well Developed Neck Neck Exam: Neck Supple Pulmonary Resp Exam: Clear Bilaterally, Breath Sounds Equal Cardiology CV Exam: Regular, Normal Sinus Rhythm Gastrointestinal/Abdomen GI Exam: Soft, Non-Tender, Bowel Sounds Present Extremeties Extremities Exam: No Edema Neurologic Neuro Exam: Alert, Awake Assessment/Plan Problem List: (1) Hyperkalemia Plan: ARF/CKD Improved cr declined K 5.1 Is not uremic and follows with Dr. Moore He is aware that he has advanced stage kidney disease (2) Acidosis, metabolic Plan: Non-anion gap monitor on bicarbonate drip improved (3) CKD (chronic kidney disease), stage V Plan: As above due to diabetic kidney disease (4) Recurrent herniation of lumbar disc Plan: He had surgery (5) Lumbar foraminal stenosis Plan: Post surgery Vicky Reyes MD March 19, 2017 11:33
[2017-03-19] MEDS: cloNIDine HCL 0.1 MG TAB PO PRN ×2 (11:46→18:47)
[2017-03-19] MEDS: LABETALOL HCL 100 MG/20 ML VIAL IV PUSH PRN (16:32)
[2017-03-19 16:59] LABS: BICARBONATE 20.7 MEQ/L (21.0-32.0); POTASSIUM 4.8 MEQ/L (3.5-5.1)
[2017-03-19] MEDS ORDERED: MORPHINE SULFATE 4 MG/ML INJ IV PUSH PRN (17:00)
[2017-03-19] MEDS: ATORVASTATIN 40 MG TAB PO SCH (21:37)
[2017-03-20] VITALS (14 sets, daily range): BP systolic 141–180; BP diastolic 61–157; PULSE 63–75; RESP 18–37; TEMP 98–99; O2SAT 92–98
[2017-03-20] MEDS ORDERED: chlordiazePOXIDE 25 MG CAP PO ONE (00:30)
[2017-03-20] MEDS: SODIUM BICARBONATE 8.4% INJ 100 MEQ in SODIUM CHLOR 0.45% 1000 ML INJ 1,000 ML IV SCH (00:30)
[2017-03-20 03:25] LABS: AUTOMATED NEUTROPHIL # 5.3 TH/MM3 (1.8-7.7); BASOPHIL % 0.4 % (0.0-2.0); EOSINOPHIL # 0.2 TH/MM3 (0-0.4); EOSINOPHIL % 2.1 % (0.0-4.0); HEMATOCRIT 23.6 % (39.0-51.0); HEMO FLAGS DIFF FINAL; LYMPHOCYTE # 1.8 TH/MM3 (1.0-4.8); MEAN CELL VOLUME 92.7 FL (80.0-100.0); MEAN CORPUSCULAR HEMOGLOBIN 31.3 PG (27.0-34.0); MEAN CORPUSCULAR HGB CONC 33.8 % (32.0-36.0); MONO % 13.4 % (0.0-8.0); NEUT % 63.1 % (16.0-70.0); PLATELET COUNT 113 TH/MM3 (150-450); RED BLOOD COUNT 2.55 MIL/MM3 (4.50-5.90); RED CELL DISTRIBUTION WIDTH 14.6 % (11.6-17.2); WHITE BLOOD COUNT 8.4 TH/MM3 (4.0-11.0)
[2017-03-20 03:32] LABS: BICARBONATE 23.2 MEQ/L (21.0-32.0); POTASSIUM 4.7 MEQ/L (3.5-5.1)
[2017-03-20] MEDS: INSULIN NovoLIN REGULAR SUPPLEMENTAL SCALE SQ SCH ×4 (06:28→21:27)
[2017-03-20] MEDS: ASPIRIN EC 81 MG TABEC PO SCH (09:00)
[2017-03-20] MEDS: SODIUM CHLORIDE 0.9% FLUSH 10 ML FLUSH IV FLUSH SCH ×2 (09:00→21:00)
--- NOTE | 2017-03-20 09:14 | HHI.CCPN ---
Subjective Remarks/Hospital Course Patient is a 76-year-old male with past medical history significant for chronic kidney disease, type 2 diabetes, hypertension, previous redo left L2 -L3 hemilaminotomy with microdiscectomy on 11/01/14 and previous left L2-L3 and L3-L4 hemilaminotomy with microdiscectomy on 05/14/13. Patient presented to , with progressive pain and weakness of the lower extremities. He underwent Left L2-L3 and L3-L4 transforaminal decompression with complete discectomy and interbody fusion with pedicle screw fixation today by Dr. Bowen. Patient had a potassium of 6.5 prior to surgery, which came down to 5.9 with treatment. Postop potassium was 7 BUN/cr 80/3.8, bicarb was 15. Stat EKG showed some cardiotoxicity changes with few peaked T waves and interventricular conduction delay. Patient was emergently given calcium chloride 2 g, IV insulin 10 units for by D50 one amp, DuoNeb breathing treatments, bicarbonate 100 meq, Kayexalate 30 g 1. For surgery EBL was 200 ml and patient received 1800 ml crystalloids I evaluated patient in PACU. Patient is extubated anxious and hypertensive. Explained to patient and plan of care 03/19: S/P lumbar surgery and CKD with retention of potassium. Sitting in chair with better potassium control. 03/20: Alert. Potassium consistently normal now. Objective Vital Signs Date Time Temp Pulse Resp B/P Pulse Ox O2 Delivery O2 Flow Rate FiO2 03/20/17 06:00 66 03/20/17 04:00 98.5 21 149/61 96 03/19/17 20:16 Nasal Cannula 1.00 03/19/17 19:00 96 Intake and Output 03/19/17 03/19/17 03/20/17 08:00 16:00 00:00 Intake Total 1184 ml 1449 ml 1092 ml Output Total 1125 ml 900 ml 950 ml Balance 59 ml 549 ml 142 ml Result Diagram: 03/20/17 0305 03/20/17 0305 Objective Remarks GEN: Sitting in chair. HEAD: Normocephalic, atraumatic. NECK: Supple. LUNGS: Clear to auscultation bilaterally. No wheezes or cough. HEART: Regular, rate and rhythm. Normal S1, S2. 3/9 sys mur apex ABDOMEN: Soft, nontender. Positive bowel sounds. SKIN: Well perfused. MUSCULOSKELETAL: Recent back surgery NEUROLOGIC: Awake alert oriented 3. Normal strength all extremities. Protects airway. A/P Assessment and Plan ASSESSMENT Hyperkalemia with cardiac toxicity s/p Left L2-L3 and L3-L4 transforaminal decompression with complete discectomy and interbody fusion with pedicle screw fixation. Chronic kidney disease stage IV Hypertension Type 2 diabetes PLAN NEURO: -Morphine CHIEF DEPUTY [employer] CLERK pump for pain control -Postop management per Dr. Bowen -K controlled. RESP: -DuoNeb every 6 hours when necessary -Nasal cannula oxygen, as needed CV: -Stat EKG showed some cardiotoxicity changes with few peaked T waves and interventricular conduction delay. -Emergently given calcium chloride 2 g, IV insulin 10 units for by D50 one amp, DuoNeb breathing treatments, bicarbonate 100 meq, Kayexalate 30 g 1. -Normal saline IV fluids 1L bolus and 75 ml per hour -Nephrology consulted stat -Hold valsartan GI: -Renal diet after hyperkalemia resolves -IV Protonix : -Patient has chronic kidney disease followed by Dr. Moore -Nephrology Dr. Reyes consulted -Patient and informed need for probable dialysis to correct hyperkalemia, if medical treatment inadequate ID: -Perioperative antibiotics per Dr. Bowen HEME: -Monitor CBC, CMP, coags ENDO: -Sliding scale insulin for hyperglycemia PROPH: -Bilateral lower extremity SCDs. Chemical DVT prophylaxis only after clearance from neurosurgery LINES: -Utilize peripheral IVs, central line if needed CC time 55 min Chaka Mccloud MD March 20, 2017 09:14
[2017-03-20] MEDS: DOCUSATE SODIUM 100 MG CAP PO SCH ×2 (09:16→21:27)
[2017-03-20] MEDS: CALCITRIOL 0.25 MCG CAP PO SCH (09:16)
[2017-03-20] MEDS: hydrALAZINE HCL 100 MG TAB PO SCH ×3 (09:16→18:09)
[2017-03-20] MEDS: PANTOPRAZOLE SOD 40 MG DELAYED RELEASE TAB PO SCH (09:16)
[2017-03-20] MEDS: POLYETHYLENE GLYCOL 17 GM PKG PO SCH (09:17)
[2017-03-20] MEDS: LABETALOL HCL 300 MG TAB PO SCH ×3 (09:17→18:09)
--- NOTE | 2017-03-20 09:18 | HHI.NSPN ---
(Bon Christianson) History Chief Complaint: Left hip/buttocks discomfort. (Bon Christianson) Interval History This is a 76-year-old male who is known to us. He has previously undergone a redo left L2-L3 hemilaminotomy with microdiscectomy on 11/01/14 and prior to that he had undergone an left L2-L3 and L3-L4 hemilaminotomy with microdiscectomy on 05/14/13. The patient states since his last surgery he did really well but then progressively started having difficulty walking. He has left-sided back pain that radiates into the hip area on the left side. He denies any paresthesias in the lower extremities. He has bilateral leg pain but is unclear of the exact distribution. He denies any bowel or bladder incontinence. He states his pain resolves with lying down. He has tried physical therapy, acupuncture, pain management and he continues to decline in his level of pain and his function. The patient and his are stating that he cannot live with his current level of discomfort and the restrictions, and he is requesting that we proceed with surgical intervention. 03/19/17: Pt awake and alert. States incisional pain controlled. No radiculopathy in LEs. No paresthesias in LEs. No chest pain or sob. 03/20/17: A little more confused this morning. Complains of left hip area discomfort. Not clear about any radiating pain. Follows simple commands. No chest pain or sob. (Bon Christianson) Review of Systems General: Negative for: fever, chills, insomnia Respiratory: Negative for: shortness of breath, cough, sputum Cardiovascular: Negative for: chest pain Gastrointestinal: Negative for: nausea, vomitting, diarrhea, constipation ( Bon Christianson) Exam Results Vital Signs Date Time Temp Pulse Resp B/P Pulse Ox O2 Delivery O2 Flow Rate FiO2 03/20/17 06:00 66 03/20/17 04:00 98.5 21 149/61 96 03/19/17 20:16 Nasal Cannula 1.00 03/19/17 19:00 96 Intake and Output 03/19/17 03/19/17 03/20/17 08:00 16:00 00:00 Intake Total 1184 ml 1449 ml 1092 ml Output Total 1125 ml 900 ml 950 ml Balance 59 ml 549 ml 142 ml (Bon Christianson) Physical Examination Resp: CTA bilaterally Heart: NSR no murmurs Abd: Soft positive bs Skin: No cyanosis or erythema. Muscle: Moves LEs with good strength, some left iliopsoas weakness 3-/5. Neuro: Pt awake and alert. Follows commands well. Speech clear some confusion this morning. (Bon Christianson) Lab, Micro, Other Results Laboratory Tests Test 03/19/17 03/19/17 03/20/17 12:55 16:17 03:05 Nasal Screen MRSA (PCR) MRSA NOT DETECTED Sodium Level 142 MEQ/L 143 MEQ/L Potassium Level 4.8 MEQ/L 4.7 MEQ/L Chloride Level 114 MEQ/L 113 MEQ/L Carbon Dioxide Level 20.7 MEQ/L 23.2 MEQ/L Anion Gap 7 MEQ/L 7 MEQ/L Blood Urea Nitrogen 61 MG/DL 58 MG/DL Creatinine 3.25 MG/DL 3.18 MG/DL Estimat Glomerular Filtration 19 ML/MIN 19 ML/MIN Rate Random Glucose 190 MG/DL 114 MG/DL Calcium Level 9.0 MG/DL 8.4 MG/DL White Blood Count 8.4 TH/MM3 Red Blood Count 2.55 MIL/MM3 Hemoglobin 8.0 GM/DL Hematocrit 23.6 % Mean Corpuscular Volume 92.7 FL Mean Corpuscular Hemoglobin 31.3 PG Mean Corpuscular Hemoglobin 33.8 % Concent Red Cell Distribution Width 14.6 % Platelet Count 113 TH/MM3 Mean Platelet Volume 8.5 FL Neutrophils (%) (Auto) 63.1 % Lymphocytes (%) (Auto) 21.0 % Monocytes (%) (Auto) 13.4 % Eosinophils (%) (Auto) 2.1 % Basophils (%) (Auto) 0.4 % Neutrophils # (Auto) 5.3 TH/MM3 Lymphocytes # (Auto) 1.8 TH/MM3 Monocytes # (Auto) 1.1 TH/MM3 Eosinophils # (Auto) 0.2 TH/MM3 Basophils # (Auto) 0.0 TH/MM3 CBC Comment DIFF FINAL Differential Comment 03/19/17 03/19/17 03/20/17 15:00 23:00 07:00 Intake Total 1449 ml 1092 ml 575 ml Output Total 900 ml 950 ml 600 ml Balance 549 ml 142 ml -25 ml Intake Oral 720 ml 240 ml IV Total 729 ml 852 ml 575 ml Output Urine Total 900 ml 950 ml 600 ml # Bowel Movements 0 0 0 (Bon Christianson) Medical Decision Making Impression and Plan A: 76 y/o M s/p Lumbar L2-3 and L3-4 transforaminal decompression with interbody fusion; redo L2, L3 and L4 decompressive laminectomy with facetectomy and foraminotomy; L2-4 pedicle screw fixation; L2-3 and L3-4 interbody cage placement. Chronic kidney disease. P: Continue with pain control PT with brace Continue with medical management of his chronic kidney disease. (Bon Christianson) Attending Statement The exam, history, and the medical decision-making described in the above note were completed with the assistance of the mid-level provider. I reviewed and agree with the findings presented. I attest that I had a [id number] encounter with the patient on the same day, and personally performed and documented my assessment and findings in the medical record. Patient was confused last evening and early this morning which is improving and likely related to the pain medications. Discontinue morphine when necessary Lortab use. Out of bed with physical therapy as tolerated and rehabilitation placement once medically stable. Discussed with the at bedside (Leandro Bowen MD) Bon Christianson March 20, 2017 09:18 Leandro Bowen MD March 20, 2017 17:28
--- NOTE | 2017-03-20 09:45 | HHI.NPPN ---
Subjective History of Present Illness 76 year old with Redo Laminectomy,fusion, cage and Screw placement, developed hyperkalemia post op Additional Remarks back pain otherwise doing well Review of Systems Musculoskeletal MS: Pain/Stiffness Objective Data Data 03/19/17 03/20/17 19:00 07:00 Intake Total 1449 ml 1667 ml Output Total 900 ml 1550 ml Balance 549 ml 117 ml Intake Oral 720 ml 240 ml IV Total 729 ml 1427 ml Output Urine Total 900 ml 1550 ml # Bowel Movements 0 0 Vital Signs Date Time Temp Pulse Resp B/P Pulse Ox O2 Delivery O2 Flow Rate FiO2 03/20/17 06:00 66 03/20/17 04:00 69 03/20/17 04:00 98.5 69 21 149/61 96 03/20/17 02:00 66 03/20/17 00:00 98.0 72 19 151/68 98 03/20/17 00:00 72 03/19/17 22:00 66 03/19/17 20:16 96 Nasal Cannula 1.00 03/19/17 20:00 68 03/19/17 20:00 98.9 68 20 149/90 96 03/19/17 19:00 Room Air 96 03/19/17 18:00 74 03/19/17 16:00 98.7 74 20 171/81 96 03/19/17 16:00 74 03/19/17 14:00 72 03/19/17 14:00 16 03/19/17 12:00 98.0 72 18 177/79 97 03/19/17 12:00 70 03/19/17 10:47 97 Nasal Cannula 2.00 03/19/17 10:00 71 -: 03/20/17 0305 03/20/17 0305 Physical Exam General Appearance: Well Developed Neck Neck Exam: Neck Supple Pulmonary Resp Exam: Clear Bilaterally, Breath Sounds Equal Cardiology CV Exam: Regular, Normal Sinus Rhythm Gastrointestinal/Abdomen GI Exam: Soft, Non-Tender, Bowel Sounds Present Extremeties Extremities Exam: No Edema Neurologic Neuro Exam: Alert, Awake Assessment/Plan Problem List: (1) Hyperkalemia Plan: ARF/CKD Improved cr declined K 4.7 on IVF with bicarbonate may decrease rate Cr declined Is not uremic and follows with Dr. Moore He is aware that he has advanced stage kidney disease (2) Acidosis, metabolic Plan: Non-anion gap monitor on bicarbonate drip improved (3) CKD (chronic kidney disease), stage V Plan: As above due to diabetic kidney disease (4) Recurrent herniation of lumbar disc Plan: He had surgery (5) Lumbar foraminal stenosis Plan: Post surgery Vicky Reyes MD March 20, 2017 09:45
[2017-03-20] MEDS: hydrALAZINE HCL 20 MG/ML VIAL IV PUSH PRN (13:36)
[2017-03-20 15:34] LABS: BICARBONATE 24.9 MEQ/L (21.0-32.0); POTASSIUM 4.3 MEQ/L (3.5-5.1)
[2017-03-20] MEDS: ACETAMINOPHEN 325 MG TAB PO PRN (18:11)
[2017-03-20] MEDS: ATORVASTATIN 40 MG TAB PO SCH (21:27)
[2017-03-21] VITALS (10 sets, daily range): BP systolic 130–167; BP diastolic 60–74; PULSE 59–81; RESP 17–37; TEMP 97.7–98.9; O2SAT 96–99
[2017-03-21] MEDS: hydrALAZINE HCL 20 MG/ML VIAL IV PUSH PRN (00:22)
[2017-03-21] MEDS: LABETALOL HCL 100 MG/20 ML VIAL IV PUSH PRN (03:40)
[2017-03-21 04:59] LABS: BICARBONATE 24.1 MEQ/L (21.0-32.0); POTASSIUM 4.3 MEQ/L (3.5-5.1)
[2017-03-21] MEDS: INSULIN NovoLIN REGULAR SUPPLEMENTAL SCALE SQ SCH ×4 (06:30→20:06)
--- NOTE | 2017-03-21 07:45 | HHI.CCPN ---
Subjective Remarks/Hospital Course Patient is a 76-year-old male with past medical history significant for chronic kidney disease, type 2 diabetes, hypertension, previous redo left L2 -L3 hemilaminotomy with microdiscectomy on 11/01/14 and previous left L2-L3 and L3-L4 hemilaminotomy with microdiscectomy on 05/14/13. Patient presented to , with progressive pain and weakness of the lower extremities. He underwent Left L2-L3 and L3-L4 transforaminal decompression with complete discectomy and interbody fusion with pedicle screw fixation today by Dr. Bowen. Patient had a potassium of 6.5 prior to surgery, which came down to 5.9 with treatment. Postop potassium was 7 BUN/cr 80/3.8, bicarb was 15. Stat EKG showed some cardiotoxicity changes with few peaked T waves and interventricular conduction delay. Patient was emergently given calcium chloride 2 g, IV insulin 10 units for by D50 one amp, DuoNeb breathing treatments, bicarbonate 100 meq, Kayexalate 30 g 1. For surgery EBL was 200 ml and patient received 1800 ml crystalloids I evaluated patient in PACU. Patient is extubated anxious and hypertensive. Explained to patient and plan of care 03/19: S/P lumbar surgery and CKD with retention of potassium. Sitting in chair with better potassium control. 03/20: Alert. Potassium consistently normal now. 03/21: Stable hemodynamics and respiratory function. Minor confusion. Transfer anytime. Objective Vital Signs Date Time Temp Pulse Resp B/P Pulse Ox O2 Delivery O2 Flow Rate FiO2 03/21/17 06:00 71 03/21/17 04:00 98.5 33 150/71 96 03/20/17 20:48 Nasal Cannula 2.00 03/20/17 07:00 98 Intake and Output 03/20/17 03/20/17 03/21/17 08:00 16:00 00:00 Intake Total 575 ml 723 ml 552 ml Output Total 600 ml 900 ml Balance -25 ml -177 ml 552 ml Result Diagram: 03/20/17 0305 03/21/17 0413 Objective Remarks GEN: Sitting in chair. HEAD: Normocephalic, atraumatic. NECK: Supple. LUNGS: Clear. No wheezes or cough. HEART: Regular, rate and rhythm. Normal S1, S2. 3/9 sys mur apex ABDOMEN: Soft, nontender. Positive bowel sounds. SKIN: Well perfused. MUSCULOSKELETAL: Recent back surgery NEUROLOGIC: Awake, alert. Forgetful. Normal strength all extremities. Protects airway. A/P Assessment and Plan ASSESSMENT Hyperkalemia with cardiac toxicity s/p Left L2-L3 and L3-L4 transforaminal decompression with complete discectomy and interbody fusion with pedicle screw fixation. Chronic kidney disease stage IV Hypertension Type 2 diabetes PLAN NEURO: -Morphine SITE [employer]OR pump for pain control -Postop management per Dr. Bowen -K controlled. RESP: -DuoNeb every 6 hours when necessary -Nasal cannula oxygen, as needed CV: -Stat EKG showed some cardiotoxicity changes with few peaked T waves and interventricular conduction delay. -Emergently given calcium chloride 2 g, IV insulin 10 units for by D50 one amp, DuoNeb breathing treatments, bicarbonate 100 meq, Kayexalate 30 g 1. -Normal saline IV fluids 1L bolus and 75 ml per hour -Nephrology consulted stat -Hold valsartan GI: -Renal diet after hyperkalemia resolves -IV Protonix : -Patient has chronic kidney disease followed by Dr. Moore -Nephrology Dr. Reyes consulted -Patient and informed need for probable dialysis to correct hyperkalemia, if medical treatment inadequate ID: -Perioperative antibiotics per Dr. Bowen HEME: -Monitor CBC, CMP, coags ENDO: -Sliding scale insulin for hyperglycemia PROPH: -Bilateral lower extremity SCDs. Chemical DVT prophylaxis only after clearance from neurosurgery LINES: -Utilize peripheral IVs, central line if needed Overall impression: Good progress. Mild confusion, nonfocal exam. Chaka Mccloud MD March 21, 2017 07:44
[2017-03-21] MEDS: SODIUM CHLORIDE 0.9% FLUSH 10 ML FLUSH IV FLUSH SCH ×2 (09:00→20:06)
[2017-03-21] MEDS: POLYETHYLENE GLYCOL 17 GM PKG PO SCH (09:23)
[2017-03-21] MEDS: CALCITRIOL 0.25 MCG CAP PO SCH (09:26)
[2017-03-21] MEDS: ASPIRIN EC 81 MG TABEC PO SCH (09:27)
[2017-03-21] MEDS: hydrALAZINE HCL 100 MG TAB PO SCH ×3 (09:27→18:56)
[2017-03-21] MEDS: LABETALOL HCL 300 MG TAB PO SCH ×3 (09:28→18:56)
[2017-03-21] MEDS: PANTOPRAZOLE SOD 40 MG DELAYED RELEASE TAB PO SCH (09:28)
[2017-03-21] MEDS: DOCUSATE SODIUM 100 MG CAP PO SCH ×2 (09:29→20:06)
[2017-03-21] MEDS: ACETAMINOPHEN 325 MG TAB PO PRN (09:32)
--- NOTE | 2017-03-21 12:46 | HHI.NSPN ---
History Chief Complaint: low back incisional discomfort. Interval History This is a 76-year-old male who is known to us. He has previously undergone a redo left L2-L3 hemilaminotomy with microdiscectomy on 11/01/14 and prior to that he had undergone an left L2-L3 and L3-L4 hemilaminotomy with microdiscectomy on 05/14/13. The patient states since his last surgery he did really well but then progressively started having difficulty walking. He has left-sided back pain that radiates into the hip area on the left side. He denies any paresthesias in the lower extremities. He has bilateral leg pain but is unclear of the exact distribution. He denies any bowel or bladder incontinence. He states his pain resolves with lying down. He has tried physical therapy, acupuncture, pain management and he continues to decline in his level of pain and his function. The patient and his are stating that he cannot live with his current level of discomfort and the restrictions, and he is requesting that we proceed with surgical intervention. 03/19/17: Pt awake and alert. States incisional pain controlled. No radiculopathy in LEs. No paresthesias in LEs. No chest pain or sob. 03/20/17: A little more confused this morning. Complains of left hip area discomfort. Not clear about any radiating pain. Follows simple commands. No chest pain or sob. 03/21/17: Patient currently sleeping arouses to voice. Complains of incisional back pain. Denies any radicular pain into his buttocks or lower extremities today. No paresthesias in the lower extremities. Patient states he got up and ambulated with physical therapy this morning. His states that he is more fatigued today. Review of Systems General: Negative for: fever, chills, insomnia Respiratory: Negative for: shortness of breath, cough, sputum Cardiovascular: Negative for: chest pain Gastrointestinal: Negative for: nausea, vomitting, diarrhea, constipation Exam Results Vital Signs Date Time Temp Pulse Resp B/P Pulse Ox O2 Delivery O2 Flow Rate FiO2 03/21/17 12:00 97.7 64 17 156/71 96 03/21/17 07:00 Nasal Cannula 4.00 03/20/17 07:00 98 Intake and Output 03/20/17 03/20/17 03/21/17 08:00 16:00 00:00 Intake Total 575 ml 723 ml 552 ml Output Total 600 ml 900 ml Balance -25 ml -177 ml 552 ml Physical Examination Resp: CTA bilaterally Heart: NSR no murmurs Abd: Soft positive bs Skin: No cyanosis or erythema. Muscle: Moves LEs with good strength, some left iliopsoas weakness 3-/5. Neuro: Pt awakens to voice. Follows commands well. Speech clear. Patient appears to have less confusion. Lab, Micro, Other Results Last Impressions Lumbar Spine X-Ray 03/18/17 0000 Signed Impressions: Service Date/Time: Saturday, March 18, 2017 09:01 - CONCLUSION: Lateral fluoroscopic view of the lumbar spine demonstrates temporary probes overlying the posterior elements at L3 and L4. Bon Bernard MD Laboratory Tests Test 03/20/17 03/21/17 14:30 04:13 Sodium Level 142 MEQ/L 144 MEQ/L Potassium Level 4.3 MEQ/L 4.3 MEQ/L Chloride Level 110 MEQ/L 112 MEQ/L Carbon Dioxide Level 24.9 MEQ/L 24.1 MEQ/L Anion Gap 7 MEQ/L 8 MEQ/L Blood Urea Nitrogen 56 MG/DL 60 MG/DL Creatinine 3.27 MG/DL 3.47 MG/DL Estimat Glomerular Filtration 18 ML/MIN 17 ML/MIN Rate Random Glucose 214 MG/DL 234 MG/DL Calcium Level 8.8 MG/DL 8.7 MG/DL Phosphorus Level 4.0 MG/DL 03/20/17 03/20/17 03/21/17 15:00 23:00 07:00 Intake Total 723 ml 552 ml 307 ml Output Total 900 ml 300 ml Balance -177 ml 552 ml 7 ml Intake Oral 240 ml 240 ml IV Total 483 ml 312 ml 307 ml Output Urine Total 900 ml 300 ml # Voids 2 # Bowel Movements 0 0 Medical Decision Making Impression and Plan A: 76 y/o M s/p Lumbar L2-3 and L3-4 transforaminal decompression with interbody fusion; redo L2, L3 and L4 decompressive laminectomy with facetectomy and foraminotomy; L2-4 pedicle screw fixation; L2-3 and L3-4 interbody cage placement. Chronic kidney disease. P: Continue with pain control PT with brace Continue with medical management of his chronic kidney disease. Patient has been accepted to [facility]. Discharge planning in progress when medically stable. Bon Christianson March 21, 2017 12:46
--- NOTE | 2017-03-21 14:46 | HHI.NPPN ---
Subjective History of Present Illness 76 year old with Redo Laminectomy,fusion, cage and Screw placement, developed hyperkalemia post op Review of Systems Musculoskeletal MS: Pain/Stiffness Objective Data Data 03/20/17 03/21/17 19:00 07:00 Intake Total 723 ml 859 ml Output Total 900 ml 300 ml Balance -177 ml 559 ml Intake Oral 240 ml 240 ml IV Total 483 ml 619 ml Output Urine Total 900 ml 300 ml # Voids 2 # Bowel Movements 0 0 Vital Signs Date Time Temp Pulse Resp B/P Pulse Ox O2 Delivery O2 Flow Rate FiO2 03/21/17 14:01 64 03/21/17 12:00 97.7 64 17 156/71 96 03/21/17 12:00 64 03/21/17 10:00 69 03/21/17 08:00 70 03/21/17 08:00 98.5 70 37 161/69 97 03/21/17 07:00 97 Nasal Cannula 4.00 03/21/17 06:00 71 03/21/17 04:00 98.5 68 33 150/71 96 03/21/17 04:00 68 03/21/17 02:00 67 03/21/17 00:00 98.3 62 31 167/74 99 03/21/17 00:00 62 03/20/17 22:28 28 03/20/17 22:00 63 03/20/17 20:48 97 Nasal Cannula 2.00 03/20/17 20:00 99.0 64 37 141/67 96 03/20/17 20:00 64 03/20/17 19:00 96 Nasal Cannula 2.00 03/20/17 18:00 65 03/20/17 16:00 98.8 65 33 141/66 95 03/20/17 16:00 65 -: 03/20/17 0305 03/21/17 0413 Physical Exam General Appearance: Well Developed Neck Neck Exam: Neck Supple Pulmonary Resp Exam: Clear Bilaterally, Breath Sounds Equal Cardiology CV Exam: Regular, Normal Sinus Rhythm Gastrointestinal/Abdomen GI Exam: Soft, Non-Tender, Bowel Sounds Present Extremeties Extremities Exam: No Edema Neurologic Neuro Exam: Alert, Awake Assessment/Plan Problem List: (1) Hyperkalemia Plan: ARF/CKD Improved cr declined K 4.3 Cr3.4 stable Is not uremic and follows with Dr. Moore He is aware that he has advanced stage kidney disease (2) Acidosis, metabolic Plan: Non-anion gap monitor on bicarbonate drip improved (3) CKD (chronic kidney disease), stage V Plan: As above due to diabetic kidney disease (4) Recurrent herniation of lumbar disc Plan: He had surgery (5) Lumbar foraminal stenosis Plan: Post surgery Vicky Reyes MD March 21, 2017 14:46
[2017-03-21] MEDS: ATORVASTATIN 40 MG TAB PO SCH (20:06)
[2017-03-22] VITALS: BP 162/65; PULSE 66; RESP 18; TEMP 99.1; O2SAT 94
[2017-03-22 03:40] VITALS: BP 175/69; PULSE 69; RESP 17; TEMP 98.5; O2SAT 95
[2017-03-22 05:00] VITALS: BP 160/70
[2017-03-22] MEDS: INSULIN NovoLIN REGULAR SUPPLEMENTAL SCALE SQ SCH ×2 (05:59→11:56)
[2017-03-22 07:53] VITALS: BP 166/65; PULSE 75; RESP 20; TEMP 98.7; O2SAT 92
[2017-03-22] MEDS: DOCUSATE SODIUM 100 MG CAP PO SCH (09:08)
[2017-03-22] MEDS: POLYETHYLENE GLYCOL 17 GM PKG PO SCH (09:09)
[2017-03-22] MEDS: ASPIRIN EC 81 MG TABEC PO SCH (09:10)
[2017-03-22] MEDS: LABETALOL HCL 300 MG TAB PO SCH ×2 (09:10→13:18)
[2017-03-22] MEDS: PANTOPRAZOLE SOD 40 MG DELAYED RELEASE TAB PO SCH (09:10)
[2017-03-22] MEDS: CALCITRIOL 0.25 MCG CAP PO SCH (09:11)
[2017-03-22] MEDS: hydrALAZINE HCL 100 MG TAB PO SCH ×2 (09:11→13:18)
[2017-03-22] MEDS: SODIUM CHLORIDE 0.9% FLUSH 10 ML FLUSH IV FLUSH SCH (09:14)
--- NOTE | 2017-03-22 10:41 | HHI.NSPN ---
(Bon Christianson) History Chief Complaint: low back incisional discomfort. (Bon Christianson) Interval History This is a 76-year-old male who is known to us. He has previously undergone a redo left L2-L3 hemilaminotomy with microdiscectomy on 11/01/14 and prior to that he had undergone an left L2-L3 and L3-L4 hemilaminotomy with microdiscectomy on 05/14/13. The patient states since his last surgery he did really well but then progressively started having difficulty walking. He has left-sided back pain that radiates into the hip area on the left side. He denies any paresthesias in the lower extremities. He has bilateral leg pain but is unclear of the exact distribution. He denies any bowel or bladder incontinence. He states his pain resolves with lying down. He has tried physical therapy, acupuncture, pain management and he continues to decline in his level of pain and his function. The patient and his are stating that he cannot live with his current level of discomfort and the restrictions, and he is requesting that we proceed with surgical intervention. 03/19/17: Pt awake and alert. States incisional pain controlled. No radiculopathy in LEs. No paresthesias in LEs. No chest pain or sob. 03/20/17: A little more confused this morning. Complains of left hip area discomfort. Not clear about any radiating pain. Follows simple commands. No chest pain or sob. 03/21/17: Patient currently sleeping arouses to voice. Complains of incisional back pain. Denies any radicular pain into his buttocks or lower extremities today. No paresthesias in the lower extremities. Patient states he got up and ambulated with physical therapy this morning. His states that he is more fatigued today. 03/22/17: Pt awakens to voice. Complains of low back pain, radiates into the left buttocks. No radiculopathy or paresthesias in LEs. (Bon Christianson) Review of Systems General: Negative for: fever, chills, insomnia Respiratory: Negative for: shortness of breath, cough, sputum Cardiovascular: Negative for: chest pain Gastrointestinal: Positive for: constipation, Negative for: nausea, vomitting , diarrhea (Bon Christianson) Exam Results Vital Signs Date Time Temp Pulse Resp B/P Pulse Ox O2 Delivery O2 Flow Rate FiO2 03/22/17 07:53 98.7 75 20 166/65 92 03/21/17 07:00 Nasal Cannula 4.00 03/20/17 07:00 98 Intake and Output 03/21/17 03/21/17 03/22/17 08:00 16:00 00:00 Intake Total 307 ml 879 ml 360 ml Output Total 300 ml 575 ml Balance 7 ml 304 ml 360 ml (Bon Christianson) Physical Examination Resp: CTA bilaterally Heart: NSR no murmurs Abd: Soft positive bs Skin: No cyanosis or erythema. Muscle: Moves LEs with good strength, some left iliopsoas weakness 4-/5, Improving. Neuro: Pt awakens to voice. Follows commands well. Speech clear. Patient less confused. (Bon Christianson) Lab, Micro, Other Results Last Impressions Lumbar Spine X-Ray 03/18/17 0000 Signed Impressions: Service Date/Time: Saturday, March 18, 2017 09:01 - CONCLUSION: Lateral fluoroscopic view of the lumbar spine demonstrates temporary probes overlying the posterior elements at L3 and L4. Bon Bernard MD 03/21/17 03/21/17 03/22/17 15:00 23:00 07:00 Intake Total 879 ml 360 ml 360 ml Output Total 575 ml 350 ml Balance 304 ml 360 ml 10 ml Intake Oral 820 ml 360 ml 360 ml IV Total 59 ml Output Urine Total 575 ml 350 ml # Voids 3 2 1 (Bon Christianson) Medical Decision Making Impression and Plan A: 76 y/o M s/p Lumbar L2-3 and L3-4 transforaminal decompression with interbody fusion; redo L2, L3 and L4 decompressive laminectomy with facetectomy and foraminotomy; L2-4 pedicle screw fixation; L2-3 and L3-4 interbody cage placement. Chronic kidney disease. P: Continue with pain control PT with brace Patient has been accepted to [facility]. Discharge. Daily suppository until BM, Abdomen is soft with positive bs. (Bon Christianson) Attending Statement The exam, history, and the medical decision-making described in the above note were completed with the assistance of the mid-level provider. I reviewed and agree with the findings presented. I attest that I had a [id number] encounter with the patient on the same day, and personally performed and documented my assessment and findings in the medical record. (Leandro Bowen MD) Bon Christianson March 22, 2017 10:41 Leandro Bowen MD March 22, 2017 12:06
[2017-03-22] MEDS ORDERED: BISACODYL 10 MG SUPP RECTAL PRN (10:45)
[2017-03-22] MEDS ORDERED: MAG-LIQ PO (10:48)
[2017-03-22] MEDS ORDERED: BISA10R RECTAL (10:48)
[2017-03-22] MEDS ORDERED: POLY17S PO (10:48)
[2017-03-22] MEDS ORDERED: PANT40TA3 PO (10:48)
[2017-03-22 11:10] VITALS: BP 158/68; PULSE 95; RESP 18; TEMP 99.4; O2SAT 90
[2017-03-22] MEDS ORDERED: OXYC1CAP PO (12:03)
[2017-03-22] MEDS ORDERED: ENOX40P SQ (12:04)
[2017-03-22] MEDS ORDERED: ENOXAPARIN SODIUM 40 MG/0.4 ML SYRINGE SQ ONE (12:15)
[2017-03-28] MEDS ORDERED: COMMODE 3-IN-11 MIS (15:11)
[2017-03-28] MEDS ORDERED: GETGO ROLLING W1 MI1 (15:11)
[2017-03-29] MEDS ORDERED: ASPI1TAB69 PO (09:36)
[2017-03-29] MEDS ORDERED: ATOR40TA16 PO (09:36)
[2017-03-29] MEDS ORDERED: HYDR-3801 PO ×2 (09:36→09:43)
[2017-03-29] MEDS ORDERED: ACET325T PO (09:36)
[2017-03-29] MEDS ORDERED: TRAD5TAB PO (09:36)
[2017-03-29] MEDS ORDERED: AMLO10 PO (09:36)
[2017-03-29] MEDS ORDERED: FERR325T PO (09:36)
[2017-03-29] MEDS ORDERED: ULOR80TA2 PO (09:36)
[2017-03-29] MEDS ORDERED: LABE200T2 PO ×2 (09:36→09:43)
[2017-03-29] MEDS ORDERED: BISA10R RECTAL (09:36)
[2017-03-29] MEDS ORDERED: OMEG100010 PO (09:36)
[2017-03-29] MEDS ORDERED: OXYC1CAP PO (09:36)
[2017-03-29] MEDS ORDERED: CALC0.25 PO (09:36)
[2017-03-29] MEDS ORDERED: GLIP5TAB8 PO (09:36)
--- NOTE | 2017-04-20 12:33 | HHI.DS ---
Discharge Summary Admission Date March 18, 2017 at 05:53 Discharge Date: March 22, 2017 Admitting Diagnosis (1) Postlaminectomy syndrome, lumbar Diagnosis: Principal ICD Code: M96.1 (2) Facet arthropathy, lumbar Diagnosis: Principal ICD Code: M12.88 (3) Lumbar degenerative disc disease Diagnosis: Principal ICD Code: M51.36 (4) Lumbar foraminal stenosis Diagnosis: Principal ICD Code: M99.83 (5) Impaired mobility and activities of daily living Diagnosis: Principal ICD Code: Z74.09 (6) Recurrent herniation of lumbar disc Diagnosis: Principal ICD Code: M51.26 (7) Low back pain Diagnosis: Principal ICD Code: M54.5 (8) Spondylolisthesis at L2-L3 level Diagnosis: Principal ICD Code: M43.16 (9) Spondylolisthesis at L3-L4 level Diagnosis: Principal ICD Code: M43.16 Procedures L2/L3 and L3/L4 transforaminal decompression with interbody fusion; redo L2, L3 , L4 decompressive laminectomy with facetectomy and foraminotomy; L2 through L4 pedicle screw fixation; L2/L3 and L3/L4 interbody cage placement by Dr. Jessi MD on 03/18/17. Brief History This is a 76-year-old male was previously undergone a redo left L 2/L3 hemilaminotomy with microdiscectomy on 11/01/14 prior to that he had undergone a left L2/L3 and L3/L4 hemilaminotomy with microdiscectomy on 05/14/13. Patient states since his last surgery he did really well but then progressively started having difficulty walking. His left-sided back pain that radiates into the hip area on the left side. He denies any paresthesias in his lower extremities. He has bilateral leg pain but is unclear of the exact distribution. Denies any bowel or bladder incontinence. He states his pain resolves with lying down. He has tried physical therapy, acupuncture, pain management and he continues to decline in his level of pain in his function. The patient states he cannot live with his current level just comfort and activity restriction. Imaging We reviewed an MRI of the lumbar spine from 01/07/17 which revealed multilevel advanced disc degeneration with disc height collapse along with facet hypertrophy as well as degenerative scoliosis. He has a previous left L2/L3 and L3/L4 hemilaminotomy defect. He has a recurrent disc herniation at the left L2/L3 level with an inferior migrated fragment which leads to lateral recess and significant foraminal stenosis at the L2/L3 and L3/L4 levels. There is facet hypertrophy and stenosis at the L4 and L5 level more prominent on the right lateral recess and foramen. Hospital Course Patient underwent the above-noted procedure performed by Leandro Bowen MD. There was no intraoperative complications. Postoperatively patient was admitted to the intensive surgical care unit. Patient had a chronic history of kidney disease with a potassium 6.5 prior to surgery which improved to 5.9 with treatment. Postoperatively his potassium was 7. He had a stat EKG which showed some cardiotoxic changes with peak T waves in intraventricular conduction delay. He was seen by critical care and given emergently calcium chloride 2 g IV, insulin 10 units, DuoNeb, and D50 1 amp. He also received bicarbonate 100 mEq and Kayexalate 30 g 1. Nephrology was consult that given the patient's kidney disease. Patient's postop pain was controlled with a APPLICATION MANAGER. This was discontinued and the continued with oral pain medication. Physical therapy has been consulted and continued to work with the patient. Patient was discharged to inpatient rehabilitation in stable condition. Pt Condition on Discharge: Stable Discharge Disposition: Rehab Inpatient Discharge Instructions DIET: Follow Instructions for: Diabetic Diet ACTIVITIES You can perform: Shower Only-No Bath Activities to Avoid: Lifting/Bending, Prolonged Standing, Strenuous Activity, Bathing, Driving ADDITIONAL Activity Instructio: Lumbar brace on when sitting, standing or walking. Discontinued Medications: Oxycodone (Oxycodone) 10 Mg Tab 10 MG PO Q8H PRN PAIN Ref 0 TAB Bon Christianson Apr 20, 2017 12:33
== END 2017-03-22 13:38 | DRG 460 ==
LOC: HSDI 03-18 05:53 → N03A 03-18 15:53 → N06A 03-21 18:06
PROVIDERS: ADMIT Neurological Surgery; ATTEND Neurological Surgery
PROC: 0SG107J Fusion of 2 or more Lumbar Vertebral Joints with Autologous Tissue Substitute, Posterior Approach, Anterior Column, Open Approach (ICD-10-PCS; 2017-03-18)
PROC: 0ST20ZZ Resection of Lumbar Vertebral Disc, Open Approach (ICD-10-PCS; 2017-03-18)
PROC: 0SG10AJ Fusion of 2 or more Lumbar Vertebral Joints with Interbody Fusion Device, Posterior Approach, Anterior Column, Open Approach (ICD-10-PCS; principal; 2017-03-18 08:30)
DX: M51.16 Intervertebral disc disorders with radiculopathy, lumbar region (principal); N17.9 Acute kidney failure, unspecified; E87.2 Acidosis; E11.22 Type 2 diabetes mellitus with diabetic chronic kidney disease; I12.0 Hypertensive chronic kidney disease with stage 5 chronic kidney disease or end stage renal disease; N18.5 Chronic kidney disease, stage 5; E11.65 Type 2 diabetes mellitus with hyperglycemia; Z99.81 Dependence on supplemental oxygen; E87.5 Hyperkalemia; M06.9 Rheumatoid arthritis, unspecified; G47.30 Sleep apnea, unspecified; R26.2 Difficulty in walking, not elsewhere classified; M79.604 Pain in right leg; M79.605 Pain in left leg; Z87.891 Personal history of nicotine dependence; I45.9 Conduction disorder, unspecified; M96.1 Postlaminectomy syndrome, not elsewhere classified; M48.06 Spinal stenosis, lumbar region
CPT/HCPCS: 72020; 72100; 76000; 80048; 80053; 82948; 83735; 84100; 84132; 85014; 85018; 85025; 86850; 86900; 86901; 86920; 87641; 93005; 94150; 94664; C1713; J0131; J0360; J0690; J1650; J1815; J2250; J2270; J2370; J2405; J3010; J3370; J7030; J7040; J7050

== ENCOUNTER → 2017-03-13 | Outpatient (CLI) | payer MEDICARE, BC ==
[~2017-03-13] MED LIST changes: +ACET325T PO; +AMLO10 PO; +AMLO10TA2 PO; +ASPI1TAB69 PO; +ASPI81TA81; +BISA10R RECTAL; +COMMODE 3-IN-11 MIS; +ENOX40P SQ; +FERR325T PO; +GETGO ROLLING W1 MI1; +LABE200T2 PO; +MAG-LIQ PO; +OMEG1000; +OMEG100010 PO; +OXYC1CAP PO; +PANT40TA3 PO; +POLY17S PO; +ULOR80TA2; +ULOR80TA2 PO
[2017-03-13 13:36] LABS: AUTOMATED NEUTROPHIL # 4.2 TH/MM3 (1.8-7.7); BASOPHIL % 0.7 % (0.0-2.0); EOSINOPHIL # 0.2 TH/MM3 (0-0.4); EOSINOPHIL % 2.4 % (0.0-4.0); HEMATOCRIT 31.5 % (39.0-51.0); HEMO FLAGS DIFF FINAL; LYMPH % 27.4 % (9.0-44.0); LYMPHOCYTE # 1.9 TH/MM3 (1.0-4.8); MEAN CELL VOLUME 93.4 FL (80.0-100.0); MEAN CORPUSCULAR HEMOGLOBIN 30.4 PG (27.0-34.0); MEAN CORPUSCULAR HGB CONC 32.5 % (32.0-36.0); MONO % 9.5 % (0.0-8.0); PLATELET COUNT 165 TH/MM3 (150-450); RED BLOOD COUNT 3.37 MIL/MM3 (4.50-5.90); RED CELL DISTRIBUTION WIDTH 14.7 % (11.6-17.2)
[2017-03-13 13:39] LABS: BLOOD, URINE NEG (NEG); COMMENT (UR) CULT NOT INDICATED; CULTURE IF INDICATED CULT NOT INDICATED; GLUCOSE,URINE NEG (NEG); HYALINE CAST, URINE 1 /lpf (RARE); KETONE, URINE NEG (NEG); NITRITE,URINE NEG (NEG); PH, URINE 5.5 (5.0-8.5); URINE COLOR YELLOW (YELLW/STRAW)
[2017-03-13 13:50] LABS: APTT (PATIENT) 25.2 SEC (24.3-30.1); PROTHROMBIN TIME - PATIENT 10.8 SEC (9.8-11.6)
[2017-03-13 14:03] LABS: ALKALINE PHOSPHATASE 67 U/L (45-117); ALT (GPT) 60 U/L (12-78); ANION GAP 9 MEQ/L (5-15); AST (GOT) 33 U/L (15-37); BICARBONATE 17.7 MEQ/L (21.0-32.0); BLOOD UREA NITROGEN 95 MG/DL (7-18); CHLORIDE 115 MEQ/L (98-107); GLOMERULAR FILTRATION RATE 14 ML/MIN (>89); GLUCOSE,FASTING 126 MG/DL (74-99); POTASSIUM 5.6 MEQ/L (3.5-5.1); SODIUM (NA) 142 MEQ/L (136-145); TOTAL BILIRUBIN ADULT 0.4 MG/DL (0.2-1.0)
--- NOTE | 2017-03-13 14:37 | RADRPT ---
EXAM DATE/TIME: 03/13/2017 13:57 [facility] COMPARISON: CHEST PA & LAT, October 26, 2014, 14:12. INDICATIONS : Evaluate for pneumonia, pneumothorax, or communicable disease. Pre op for lumbar surgery. MEDICAL HISTORY : None. SURGICAL HISTORY : None. ENCOUNTER: Initial ACUITY: 1 day PAIN SCORE: 0/10 LOCATION: Bilateral chest FINDINGS: The lungs are clear without infiltrate, nodule, or mass. There is no appreciable pleural effusion fo r technique. Heart and mediastinum are unremarkable. Degenerative changes and hypertrophic changes a re seen within the disc space and facets of the thoracic spine. CONCLUSION: No acute cardiopulmonary disease. Mauricio Alarcon MD on March 13, 2017 at 14:34 Board Certified Radiologist. This report was verified electronically.
== END ==
LOC: CPRE 12:57
PROVIDERS: ATTEND Neurological Surgery
DX: Z01.811 Encounter for preprocedural respiratory examination (principal); Z01.812 Encounter for preprocedural laboratory examination; Z01.818 Encounter for other preprocedural examination; Z79.01 Long term (current) use of anticoagulants; N18.9 Chronic kidney disease, unspecified
CPT/HCPCS: 36415; 71020; 80053; 81001; 85025; 85610; 85730